=== PATIENT | male | born 1955 | race Caucasian/White ===

== ENCOUNTER 2023-07-03 06:51 | Day surgery (SDC) | payer MEDICARE, BC ==
[2023-07-02 10:48] LABS: BASOPHILS % (AUTO) 0.9 % (0-1); EOSINOPHILS # (AUTO) 0.2 X10'3 (0-0.9); HEMATOCRIT 44.4 % (42.0-52.0); HEMOGLOBIN 15.6 g/dl (14.0-17.9); LYMPHOCYTES % (AUTO) 18.5 % (21-51); MEAN CORPUSCULAR HEMOGLOBIN 30.8 PG (27.0-31.0); MEAN CORPUSCULAR HGB CONC 35.2 g/dL (33.0-36.5); MEAN CORPUSCULAR VOLUME 87.5 FL (78-98); MEAN PLATELET VOLUME 10.1 FL (7.4-10.4); MONOCYTES # (AUTO) 0.3 X10'3 (0-0.9); MONOCYTES % (AUTO) 5.1 % (2-12); NEUTROPHILS % (AUTO) 72.5 % (42-75); PLATELET COUNT 95 X10'3 (140-440); RED BLOOD COUNT 5.07 X10'6 (4.70-6.10); RED CELL DISTRIBUTION WIDTH 14.8 % (11.5-14.5); WHITE BLOOD COUNT 5.5 X10'3 (4.5-11.0)
[2023-07-02 11:01] LABS: ALBUMIN 4.2 G/DL (3.4-5.0); ANION GAP 10 (8-16); BLOOD UREA NITROGEN 20 MG/DL (7-18); BUN/CREATININE RATIO 16.7 (10.0-20.0); CHLORIDE 103 MMOL/L (99-107); POTASSIUM 3.4 MMOL/L (3.5-5.1); SODIUM 139 MMOL/L (135-145); TOTAL CARBON DIOXIDE 26.2 MMOL/L (24-32); eGFR 61 ML/MIN
[2023-07-02 11:03] LABS: APTT 30 SECONDS (22-32); PROTHROMBIN TIME 11.1 SECONDS (9.0-12.0)
[2023-07-02 11:57] LABS: GLUCOSE 137 MG/DL (70-104)
[2023-07-03] VITALS (15 sets, daily range): BP systolic 111–170; BP diastolic 59–89; PULSE 53–66; RESP 10–17; TEMP 98.3; O2SAT 95–99
[~2023-07-03] VITALS: Ht 172.7 cm; Wt 100.9 kg
[~2023-07-03 06:51] MED LIST: CARV6.252 PO; HYDR25TA5 PO; LOSA100T58 PO; PIOG15TA8 PO; [UNRECOGNIZED DRUG - OTHER] PO
[2023-07-03] MEDS ORDERED: sodium bicarbonate 1meq/ml syr 150 ML in dextrose 5%-water 1,000 ML IV SCH (07:20)
[2023-07-03] MEDS ORDERED: ACET-1008 PO (07:21)
[2023-07-03] MEDS ORDERED: MELO-100 PO (07:21)
[2023-07-03] MEDS ORDERED: CARV6.2553 PO (07:21)
[2023-07-03] MEDS ORDERED: LOSA100T58 PO (07:21)
[2023-07-03] MEDS ORDERED: SILD100T70 PO (07:21)
[2023-07-03] MEDS ORDERED: ROSU20TA73 PO (07:21)
[2023-07-03] MEDS: diphenhydrAMINE 25mg capsule PO PRN (07:26)
[2023-07-03] MEDS: LORazepam 0.5 MG tablet PO PRN (07:26)
[2023-07-03] MEDS: normal saline 1,000 ML IV SCH (07:27)
[2023-07-03] MEDS ORDERED: LIDOcaine 1% (10mg/ml) 2ml vial ONE (08:25)
[2023-07-03] MEDS ORDERED: verapamil 2.5 mg/ml inj IV ONE ×2 (08:25→08:45)
[2023-07-03] MEDS ORDERED: fentaNYL/PF 50MCG/1 ML 2ML syringe ONE (08:26)
[2023-07-03] MEDS ORDERED: heparin 1,000unit/ml 10ml vial 10 ML ONE (08:26)
[2023-07-03] MEDS ORDERED: iohexol 350MG/ML 100ml bottle IV ONE (08:26)
[2023-07-03] MEDS ORDERED: midazolam 1 mg/ML 2ml injection ONE (08:26)
[2023-07-03] MEDS ORDERED: iohexol 350 MG/ML 50ML vial IV ONE (08:26)
[2023-07-03] MEDS ORDERED: nitroGLYCERIN 500mcg/5mL D5W 5 ML IV ONE (08:44)
[2023-07-03] MEDS ORDERED: LIDOcaine 1% 30ml preserv. free vial ONE (09:15)
[2023-07-03 10:29] LABS: ISTAT HGB ART 12.6 g/dl (14.0-17.9); ISTAT Hct ART 37 %PCV (42-52); ISTAT O2 SATURATION ARTERIAL 95 % (95-98); ISTAT SOURCE ART
[2023-07-03 10:44] LABS: ISTAT HGB MIX 12.6 g/dl (14.0-17.9); ISTAT Hct MIX 37 %PCV (42-52); ISTAT O2 SATURATION MIX VENOUS 58 % (60-80); ISTAT SOURCE VEN
== END 2023-07-03 15:45 | disposition home or self-care (01) ==
LOC: SSTAY O 06:51
PROVIDERS: ATTEND Internal Medicine Cardiovascular Disease
DX: I35.0 Nonrheumatic aortic (valve) stenosis (principal); I25.10 Atherosclerotic heart disease of native coronary artery without angina pectoris; I10 Essential (primary) hypertension; E11.9 Type 2 diabetes mellitus without complications; E78.5 Hyperlipidemia, unspecified; E66.3 Overweight; Z79.899 Other long term (current) drug therapy; Z98.41 Cataract extraction status, right eye; Z98.42 Cataract extraction status, left eye; Z98.890 Other specified postprocedural states; Z68.34 Body mass index [BMI] 34.0-34.9, adult; Z82.49 Family history of ischemic heart disease and other diseases of the circulatory system; Z83.3 Family history of diabetes mellitus
CPT/HCPCS: 76937; 80048; 82803; 82948; 85014; 85025; 85610; 85730; 93005; 93460; 93567; 99152; 99153; A6258; J1644; J2250; J3010; J3490; J7030; Q0163; Q9967; A6402; A6449; C1725; C1751; C1894

== ENCOUNTER 2023-07-30 09:16 | Outpatient (CLI) | payer MEDICARE, BC ==
[~2023-07-30 09:16] MED LIST changes: +ACET-1008 PO; -CARV6.252 PO; +CARV6.2553 PO; +MELO-100 PO; +ROSU20TA73 PO; +SILD100T70 PO; -[UNRECOGNIZED DRUG - OTHER] PO
[2023-07-30 09:47] LABS: BASOPHILS # (AUTO) 0.1 X10'3 (0-0.2); BASOPHILS % (AUTO) 1.4 % (0-1); EOSINOPHILS # (AUTO) 0.2 X10'3 (0-0.9); EOSINOPHILS % (AUTO) 3.7 % (0-6); HEMATOCRIT 42.2 % (42.0-52.0); HEMOGLOBIN 14.7 g/dl (14.0-17.9); LYMPHOCYTES # (AUTO) 1.2 X10'3 (1.1-4.8); LYMPHOCYTES % (AUTO) 22.3 % (21-51); MEAN CORPUSCULAR HEMOGLOBIN 30.5 PG (27.0-31.0); MEAN CORPUSCULAR HGB CONC 34.8 g/dL (33.0-36.5); MEAN CORPUSCULAR VOLUME 87.9 FL (78-98); MEAN PLATELET VOLUME 9.5 FL (7.4-10.4); MONOCYTES # (AUTO) 0.3 X10'3 (0-0.9); MONOCYTES % (AUTO) 5.9 % (2-12); NEUTROPHILS # (AUTO) 3.5 X10'3 (1.8-7.7); NEUTROPHILS % (AUTO) 66.7 % (42-75); PLATELET COUNT 99 X10'3 (140-440); RED BLOOD COUNT 4.81 X10'6 (4.70-6.10); RED CELL DISTRIBUTION WIDTH 13.9 % (11.5-14.5); WHITE BLOOD COUNT 5.3 X10'3 (4.5-11.0)
[2023-07-30 09:54] LABS: APTT 27 SECONDS (22-32); INR 1.1 INR; PROTHROMBIN TIME 11.4 SECONDS (9.0-12.0)
[2023-07-30 10:04] LABS: ALBUMIN 4.1 G/DL (3.4-5.0); BLOOD UREA NITROGEN 18 MG/DL (7-18); BUN/CREATININE RATIO 15.9 (10.0-20.0); CALCIUM 9.2 MG/DL (8.5-10.1); CREATININE 1.13 MG/DL (0.60-1.10); GLUCOSE 139 MG/DL (70-104); TOTAL CARBON DIOXIDE 28.6 MMOL/L (24-32); eGFR 65 ML/MIN
[2023-07-30 10:08] LABS: ALANINE AMINOTRANSFERASE 42 U/L (12-78); ALBUMIN/GLOBULIN RATIO 1.2 (1.1-1.5); ALKALINE PHOSPHATASE 113 IU/L (46-116); ANION GAP 8 (8-16); ASPARTATE AMINO TRANSFERASE 29 U/L (10-37); BILIRUBIN,TOTAL 0.8 MG/DL (0.1-1.0); CHLORIDE 105 MMOL/L (99-107); POTASSIUM 3.6 MMOL/L (3.5-5.1); PRO BRAIN NATRIURETIC PEPTIDE 92 PG/ML (0-125); SODIUM 142 MMOL/L (135-145); TOTAL PROTEIN 7.5 G/DL (6.4-8.2)
[2023-07-30] MEDS ORDERED: IODIXANOL 320 MG/ML INFUS..BTL 100ML IV ONE (10:21)
== END 2023-07-30 23:59 | disposition home or self-care (01) ==
LOC: RAD 09:16
PROVIDERS: ATTEND Internal Medicine Cardiovascular Disease
DX: N28.1 Cyst of kidney, acquired (principal); I35.0 Nonrheumatic aortic (valve) stenosis; R06.02 Shortness of breath; I65.29 Occlusion and stenosis of unspecified carotid artery; I70.0 Atherosclerosis of aorta
CPT/HCPCS: 71046; 71275; 74174; 75572; 80053; 83880; 85025; 85610; 85730; 93880; J3490; Q9967

== ENCOUNTER 2023-09-11 05:37 | Inpatient (IN) | payer MEDICARE, BC ==
[2023-09-09 14:57] LABS: BILIRUBIN,URINE NEGATIVE (Neg); CLARITY,URINE CLEAR (Clear); COLOR,URINE YELLOW (Yellow); GLUCOSE, URINE NEGATIVE (Neg); KETONES,URINE NEGATIVE (Neg); LEUKOCYTE ESTERASE ,URINE NEGATIVE (Neg); NITRITES, URINE NEGATIVE (Neg); OCCULT BLOOD,URINE TRACE-INTACT (Neg); PH,URINE 5.5 (4.8-8.0); PROTEIN,URINE NEGATIVE (Neg); UROBILINOGEN,URINE 0.2 E.U/dL (0.2-1.0)
[2023-09-09 14:58] LABS: BASOPHILS % (AUTO) 0.5 % (0-1); EOSINOPHILS # (AUTO) 0.1 X10'3 (0-0.9); EOSINOPHILS % (AUTO) 1.1 % (0-6); LYMPHOCYTES % (AUTO) 13.6 % (21-51); MEAN CORPUSCULAR HEMOGLOBIN 30.1 PG (27.0-31.0); MEAN CORPUSCULAR HGB CONC 34.6 g/dL (33.0-36.5); MEAN PLATELET VOLUME 9.4 FL (7.4-10.4); MONOCYTES # (AUTO) 0.4 X10'3 (0-0.9); MONOCYTES % (AUTO) 4.7 % (2-12); NEUTROPHILS % (AUTO) 80.1 % (42-75); PRE OP HEMATOCRIT 44.2 % (42.0-52.0); PRE OP HEMOGLOBIN 15.3 g/dL (14.0-17.9); PRE OP PLATELET COUNT 114 X10'3 (140-440); PRE OP WHITE BLOOD COUNT 7.5 10'3 (4.8-10.8); RED BLOOD COUNT 5.08 X10'6 (4.70-6.10); RED CELL DISTRIBUTION WIDTH 13.7 % (11.5-14.5)
[2023-09-09 14:58] LABS: UA COLLECTION TYPE CLN CATCH MIDSTREAM
[2023-09-09 15:06] LABS: SQUAMOUS EPITHELIAL CELL,UR NONE SEEN /LPF (FEW)
[2023-09-09 15:07] LABS: BACTERIA,URINE FEW /HPF (Neg); RBC,URINE 0-2 /HPF (0-2); WBC,URINE 0-4 /HPF (0-4)
[2023-09-09 15:16] LABS: PRE OP INR 1.1 INR; PRE OP PROTIME 11.3 SECONDS (9.0-12.0)
[2023-09-09 15:19] LABS: ABG BASE EXCESS -0.9 mmol/L (-2.0-2.0); ABG HCO3 22.3 mmol/L (22.0-26.0); ABG OXYGEN SATURATION 97.4 % (94-97); ABG PCO2 (T) 33.1 mmHg (35.0-48.0); ABG PH (T) 7.446 (7.340-7.440); ABG PO2 (T) 88.3 mmHg (75.0-100.0); ALLEN'S TEST POSITIVE; FCOHb 0.2 % (0.0-3.9); FHHb 2.6 % (0.0-5.0); FMetHb 0.3 % (0.0-1.5); FO2Hb 96.9 % (94-97); MODE RA; TOTAL HEMOGLOBIN 16.1 G/dl (14.0-17.9)
[2023-09-09 15:21] LABS: ALBUMIN 4.4 G/DL (3.4-5.0); ALBUMIN/GLOBULIN RATIO 1.1 (1.1-1.5); ALKALINE PHOSPHATASE 110 IU/L (46-116); BLOOD UREA NITROGEN 26 MG/DL (7-18); BUN/CREATININE RATIO 17.3 (10.0-20.0); CALCIUM 9.9 MG/DL (8.5-10.1); CHLORIDE 104 MMOL/L (99-107); PRE OP ALT 46 U/L (30-65); PRE OP ANION GAP 11 (8-16); PRE OP AST 24 U/L (10-37); PRE OP BILIRUB, TOTAL 0.9 MG/DL (0.0-1.0); PRE OP GLUCOSE 121 MG/DL (70-104); PRE OP SODIUM 141 MMOL/L (135-145); TOTAL CARBON DIOXIDE 25.7 MMOL/L (24-32); TOTAL PROTEIN 8.3 G/DL (6.4-8.2); eGFR 47 ML/MIN
[2023-09-09 16:07] LABS: HEMOGLOBIN A1C 5.5 % (4.5-6.2)
[~2023-09-11] VITALS: Ht 172.7 cm; Wt 103.1 kg
[2023-09-11] VITALS (21 sets, daily range): BP systolic 103–176; BP diastolic 45–91; PULSE 68–90; RESP 12–33; TEMP 98.1; O2SAT 98–100
[2023-09-11] MEDS: cefazolin 2gm/D5W 100mL 100 ML IV ONE (05:30)
[2023-09-11] MEDS: DOCUMENT DATE & TIME OF BETA-BLOCKER PO ONE (05:30)
[2023-09-11] MEDS: Insulin Reg/NS 100units/100mL 100 ML IV SCH ×2 (05:30→15:45)
[~2023-09-11 05:37] MED LIST changes: -ACET-1008 PO; +ASPI-612 PO; +HYDR12.55 PO; -HYDR25TA5 PO; +MIDAZolam 1 MG/ML 5ML VIAL IV ONE; -ROSU20TA73 PO; -SILD100T70 PO; +dextrose 50%-water 50ml dispensing syringe IV PRN; +insulin glargine (Lantus) pen - multi-dose SQ PRN
[2023-09-11] MEDS: metoprolol tartrate 12.5mg (1/2 tablet) PO ONE (06:34)
[2023-09-11] MEDS: mupirocin 2% nasal ointment 1gm UD NS ONE (06:35)
[2023-09-11] MEDS: ringers solution, lacted 1,000 ML IV SCH (06:35)
[2023-09-11] MEDS: famotidine 20mg tablet PO ONE (06:35)
[2023-09-11 06:36] LABS: ISTAT CREATININE 1.2 mg/dL (0.8-1.3); ISTAT HGB 13.3 g/dl (14.0-17.9); ISTAT IONIZED CALCIUM 1.19 mmol/L (1.03-1.32); ISTAT K 3.2 mmol/L (3.5-5.1); POC BUN/CREATININE RATIO 13.3 (5.4-32.0)
[2023-09-11] MEDS: midazolam 1 mg/ML 2ml injection IV ONE (08:03)
[2023-09-11] MEDS ORDERED: MIDAZolam 1mg/ml 10ml vial ONE (08:23)
[2023-09-11] MEDS ORDERED: SUfentanil 50mcg/ml 1ml amp IV ONE (08:23)
[2023-09-11] MEDS ORDERED: sevoflurane 250ml liquid IH ONE (08:58)
[2023-09-11 09:58] LABS: ABG BASE EXCESS 0.8 mmol/L (-2.0-2.0); ABG HCO3 24.3 mmol/L (22.0-26.0); ABG OXYGEN SATURATION 98.7 % (94-97); ABG PCO2 35.2 mmHg (35.0-48.0); ABG PH 7.457 (7.340-7.440); CL (ABG) 103 mmol/L (99-107); FCOHb 0.2 % (0.0-3.9); FHHb 1.3 % (0.0-5.0); FMetHb 0.3 % (0.0-1.5); FO2Hb 98.2 % (94-97); GLUCOSE (ABG) 154 mg/dl (70-104); IONIZED CA (ABG) 1.11 mmol/L (1.10-1.30); K (ABG) 3.1 mmol/L (3.5-5.1); TOTAL HEMOGLOBIN 12.9 G/dl (14.0-17.9)
[2023-09-11] MEDS: BUPIVACAINE liposomal/PF 13.3 MG/ML vial IM ONE (10:21)
[2023-09-11] MEDS: ceFAZolin 1000mg inj ONE (10:22)
[2023-09-11] MEDS: BUPIVAcaine/PF 2.5mg/ml (0.25%) 10ml vial ONE (10:22)
[2023-09-11 11:10] LABS: ABG HCO3 24.3 mmol/L (22.0-26.0); ABG OXYGEN SATURATION 98.8 % (94-97); ABG PCO2 33.8 mmHg (35.0-48.0); ABG PH 7.475 (7.340-7.440); CL (ABG) 101 mmol/L (99-107); FCOHb 0.3 % (0.0-3.9); FHHb 1.2 % (0.0-5.0); FMetHb 0.3 % (0.0-1.5); FO2Hb 98.2 % (94-97); GLUCOSE (ABG) 112 mg/dl (70-104); IONIZED CA (ABG) 0.97 mmol/L (1.10-1.30); K (ABG) 3.8 mmol/L (3.5-5.1); TOTAL HEMOGLOBIN 9.8 G/dl (14.0-17.9)
[2023-09-11 11:39] LABS: ABG BASE EXCESS VENOUS 0.9 mmol/L (-2.0 - 2.0); ABG HCO3 VENOUS 26.6 mmol/L (21.0-28.0); ABG PCO2 VENOUS 47.9 mmHg (41.0-54.0); ABG PH (VENOUS) 7.363 (7.310-7.450); CL (ABG) 102 mmol/L (99-107); FCOHb VENOUS 0.3 %; FHHb VENOUS 12.9 %; FMetHb VENOUS 0.3 % (0.0 - 0.5); FO2Hb VENOUS 86.5 %; GLUCOSE (ABG) 116 mg/dl (70-104); IONIZED CA (ABG) 0.96 mmol/L (1.10-1.30); K (ABG) 3.6 mmol/L (3.5-5.1); TOTAL HEMOGLOBIN 9.8 G/dl (14.0-17.9)
[2023-09-11 12:27] LABS: ABG BASE EXCESS 0.3 mmol/L (-2.0-2.0); ABG HCO3 26.5 mmol/L (22.0-26.0); ABG OXYGEN SATURATION 98.7 % (94-97); ABG PCO2 50.8 mmHg (35.0-48.0); ABG PH 7.336 (7.340-7.440); ABG PO2 241.6 mmHg (75.0-100.0); CL (ABG) 103 mmol/L (99-107); FCOHb 0.3 % (0.0-3.9); FHHb 1.3 % (0.0-5.0); FMetHb 0.3 % (0.0-1.5); FO2Hb 98.1 % (94-97); GLUCOSE (ABG) 142 mg/dl (70-104); IONIZED CA (ABG) 0.99 mmol/L (1.10-1.30); K (ABG) 3.8 mmol/L (3.5-5.1); TOTAL HEMOGLOBIN 9.7 G/dl (14.0-17.9)
[2023-09-11 13:56] LABS: ABG BASE EXCESS 3.3 mmol/L (-2.0-2.0); ABG HCO3 27.8 mmol/L (22.0-26.0); ABG OXYGEN SATURATION 98.9 % (94-97); ABG PCO2 42.1 mmHg (35.0-48.0); ABG PH 7.438 (7.340-7.440); CL (ABG) 102 mmol/L (99-107); FCOHb 0.3 % (0.0-3.9); FHHb 1.1 % (0.0-5.0); FMetHb 0.3 % (0.0-1.5); FO2Hb 98.3 % (94-97); GLUCOSE (ABG) 137 mg/dl (70-104); IONIZED CA (ABG) 1.25 mmol/L (1.10-1.30); K (ABG) 3.8 mmol/L (3.5-5.1); TOTAL HEMOGLOBIN 9.4 G/dl (14.0-17.9)
[2023-09-11 14:08] LABS: ACTIVATED CLOTTING TIME 680 SEC (101-148)
[2023-09-11 14:08] LABS: ACTIVATED CLOTTING TIME 397 SEC (101-148)
[2023-09-11 14:08] LABS: ACTIVATED CLOTTING TIME 710 SEC (101-148)
[2023-09-11 14:08] LABS: ACTIVATED CLOTTING TIME 895 SEC (101-148)
[2023-09-11 14:32] LABS: ABG BASE EXCESS 1.2 mmol/L (-2.0-2.0); ABG HCO3 26.2 mmol/L (22.0-26.0); ABG PH 7.402 (7.340-7.440); CL (ABG) 103 mmol/L (99-107); FCOHb 0.4 % (0.0-3.9); FHHb 13.9 % (0.0-5.0); FMetHb 0.3 % (0.0-1.5); FO2Hb 85.4 % (94-97); GLUCOSE (ABG) 130 mg/dl (70-104); IONIZED CA (ABG) 1.13 mmol/L (1.10-1.30); K (ABG) 3.3 mmol/L (3.5-5.1); TOTAL HEMOGLOBIN 9.4 G/dl (14.0-17.9)
[2023-09-11] MEDS ORDERED: rocuronium 10mg/ml inj IV ONE ×4 (14:37)
[2023-09-11] MEDS ORDERED: fentaNYL/PF 50MCG/1 ML 2ML syringe ONE (14:38)
[2023-09-11] MEDS ORDERED: propofol inj 20 ML IV ONE (14:38)
[2023-09-11] MEDS ORDERED: Neutra Phos packet PO PRN (15:45)
[2023-09-11] MEDS ORDERED: bisacodyl 10mg suppository rectal RC PRN (15:45)
[2023-09-11] MEDS ORDERED: potassium CL 10mEq/100ml bag 100 ML IV PRN (15:45)
[2023-09-11] MEDS ORDERED: dextrose 50%-water 50ml dispensing syringe IV PRN (15:45)
[2023-09-11] MEDS ORDERED: mineral oil 133ml enema RC PRN (15:45)
[2023-09-11] MEDS ORDERED: magnesium hydroxide 30ml (MOM) UD suspension PO PRN (15:45)
[2023-09-11] MEDS ORDERED: nitroGLYCERIN-Tridil 50MG/D5W 250 ML IV PRN (15:45)
[2023-09-11] MEDS ORDERED: normal saline 250ml IV soln 250 ML IV PRN (15:45)
[2023-09-11] MEDS ORDERED: insulin glargine (Lantus) pen - multi-dose SQ PRN (15:45)
[2023-09-11] MEDS ORDERED: potassium Cl 40MEQ/1/2NS 520ml 520 ML IV PRN (15:45)
[2023-09-11 16:09] LABS: ABG BASE EXCESS 1.4 mmol/L (-2.0-2.0); ABG HCO3 24.4 mmol/L (22.0-26.0); ABG OXYGEN SATURATION 98.4 % (94-97); ABG PCO2 (T) 31.6 mmHg (35.0-48.0); ABG PH (T) 7.502 (7.340-7.440); ABG PO2 (T) 134.5 mmHg (75.0-100.0); FCOHb 0.1 % (0.0-3.9); FHHb 1.6 % (0.0-5.0); FMetHb 0.3 % (0.0-1.5); MODE VENT - SIMV; PEEP 5 cm H2O; RESPIRATORY RATE 12 b/min; TIDAL VOLUME 600 mL; TOTAL HEMOGLOBIN 11.5 G/dl (14.0-17.9)
[2023-09-11 16:17] LABS: BASOPHILS % (AUTO) 0.2 % (0-1); EOSINOPHILS % (AUTO) 0.2 % (0-6); HEMATOCRIT 30.8 % (42.0-52.0); HEMOGLOBIN 10.9 g/dl (14.0-17.9); LYMPHOCYTES # (AUTO) 0.6 X10'3 (1.1-4.8); LYMPHOCYTES % (AUTO) 8.4 % (21-51); MEAN CORPUSCULAR HEMOGLOBIN 30.3 PG (27.0-31.0); MEAN CORPUSCULAR HGB CONC 35.3 g/dL (33.0-36.5); MEAN PLATELET VOLUME 9.2 FL (7.4-10.4); MONOCYTES # (AUTO) 0.4 X10'3 (0-0.9); MONOCYTES % (AUTO) 4.9 % (2-12); NEUTROPHILS # (AUTO) 6.3 X10'3 (1.8-7.7); NEUTROPHILS % (AUTO) 86.3 % (42-75); RED BLOOD COUNT 3.58 X10'6 (4.70-6.10); RED CELL DISTRIBUTION WIDTH 13.5 % (11.5-14.5); WHITE BLOOD COUNT 7.3 X10'3 (4.5-11.0)
[2023-09-11 16:23] LABS: ALANINE AMINOTRANSFERASE 29 U/L (12-78); ALBUMIN 3.5 G/DL (3.4-5.0); ALBUMIN/GLOBULIN RATIO 1.8 (1.1-1.5); ALKALINE PHOSPHATASE 51 IU/L (46-116); ANION GAP 9 (8-16); ASPARTATE AMINO TRANSFERASE 52 U/L (10-37); BILIRUBIN,TOTAL 1.5 MG/DL (0.1-1.0); BLOOD UREA NITROGEN 13 MG/DL (7-18); BUN/CREATININE RATIO 11.3 (10.0-20.0); CALCIUM 9.2 MG/DL (8.5-10.1); CHLORIDE 108 MMOL/L (99-107); CREATININE 1.15 MG/DL (0.60-1.10); GLUCOSE 115 MG/DL (70-104); MAGNESIUM 3.3 MG/DL (1.5-2.4); PHOSPHORUS 1.4 MG/DL (2.3-4.5); SODIUM 144 MMOL/L (135-145); TOTAL CARBON DIOXIDE 26.7 MMOL/L (24-32); TOTAL PROTEIN 5.4 G/DL (6.4-8.2); eCRCL 62 ML/MIN; eGFR 64 ML/MIN
[2023-09-11] MEDS: sodium chloride 0.45% 1,000 ML IV SCH (16:26)
[2023-09-11] MEDS: ceFAZolin/D5W- 1GM premix 50 ML IV SCH (16:27)
[2023-09-11 16:29] LABS: POTASSIUM 3.2 MMOL/L (3.5-5.1)
[2023-09-11 16:56] LABS: APTT 26 SECONDS (22-32); INR 1.3 INR; PROTHROMBIN TIME 13.3 SECONDS (9.0-12.0)
[2023-09-11 17:02] LABS: FIBRINOGEN 175 MG/DL (177-424)
[2023-09-11] MEDS: acetaminophen 1,000mg/100ml IV 100 ML IV SCH (17:12)
[2023-09-11 17:23] LABS: PLATELET COUNT 44 X10'3 (140-440)
[2023-09-11] MEDS: potassium Cl 20mEq/100mL bag 100 ML IV PRN (17:50)
[2023-09-11] MEDS: niCARDipine-NS 40mg/200ml IVPB 200 ML IV PRN (18:17)
[2023-09-11] MEDS: DOBUTamine-DoBUTrex 500mg/D5W 250 ML IV PRN (18:18)
[2023-09-11] MEDS: sodium phosphate inj. 30 MMOL in dextrose 5%-water 250 ML IV PRN (18:20)
[2023-09-11] MEDS: HYDROmorphone inj. 0.5 MG/0.5 ML DISP.SYRIN IV PRN (19:05)
[2023-09-11] MEDS: albumin (Human) 5% 250ml 250 ML IV PRN (19:24)
[2023-09-11] MEDS ORDERED: mupirocin 2% ointment 22GM NS SCH (20:00)
[2023-09-11] MEDS: HYDROmorphone 1 mg/ml syringe IV PRN (20:10)
[2023-09-11] MEDS: mupirocin 2% nasal ointment 1gm UD NS SCH (20:41)
[2023-09-11] MEDS: atorvastatin 10mg tablet PO SCH (20:42)
[2023-09-11] MEDS: traMADol 50MG tablet PO PRN (20:42)
[2023-09-11] MEDS: gabapentin 300mg capsule PO SCH (20:42)
[2023-09-11] MEDS: sennosides/docusate sodium tablet PO SCH (20:42)
[2023-09-11 21:53] LABS: BASOPHILS % (AUTO) 0.1 % (0-1); EOSINOPHILS % (AUTO) 0 % (0-6); HEMATOCRIT 28.2 % (42.0-52.0); HEMOGLOBIN 9.9 g/dl (14.0-17.9); LYMPHOCYTES # (AUTO) 0.3 X10'3 (1.1-4.8); LYMPHOCYTES % (AUTO) 3.8 % (21-51); MEAN CORPUSCULAR HEMOGLOBIN 30.5 PG (27.0-31.0); MEAN CORPUSCULAR HGB CONC 35.3 g/dL (33.0-36.5); MEAN CORPUSCULAR VOLUME 86.4 FL (78-98); MEAN PLATELET VOLUME 8.8 FL (7.4-10.4); MONOCYTES # (AUTO) 0.2 X10'3 (0-0.9); MONOCYTES % (AUTO) 2.6 % (2-12); NEUTROPHILS % (AUTO) 93.5 % (42-75); PLATELET COUNT 53 X10'3 (140-440); RED BLOOD COUNT 3.26 X10'6 (4.70-6.10); RED CELL DISTRIBUTION WIDTH 13.6 % (11.5-14.5); WHITE BLOOD COUNT 8.6 X10'3 (4.5-11.0)
[2023-09-11 22:06] LABS: ALBUMIN 3.6 G/DL (3.4-5.0); ANION GAP 9 (8-16); BLOOD UREA NITROGEN 15 MG/DL (7-18); BUN/CREATININE RATIO 10.6 (10.0-20.0); CALCIUM 8.4 MG/DL (8.5-10.1); CHLORIDE 109 MMOL/L (99-107); CREATININE 1.42 MG/DL (0.60-1.10); GLUCOSE 155 MG/DL (70-104); MAGNESIUM 2.4 MG/DL (1.5-2.4); PHOSPHORUS 2.4 MG/DL (2.3-4.5); POTASSIUM 3.8 MMOL/L (3.5-5.1); SODIUM 143 MMOL/L (135-145); eCRCL 50 ML/MIN; eGFR 50 ML/MIN
[2023-09-11] MEDS: magnesium 2GM in 50ml NS 50 ML IV PRN (22:26)
[2023-09-11] MEDS: hydrocortisone sod succ/PF 100mg/2ml inj. IV ONE (22:26)
[2023-09-11 22:35] LABS: ABG BASE EXCESS -0.2 mmol/L (-2.0-2.0); ABG HCO3 22.1 mmol/L (22.0-26.0); ABG OXYGEN SATURATION 98.4 % (94-97); ABG PCO2 (T) 28.8 mmHg (35.0-48.0); ABG PH (T) 7.505 (7.340-7.440); ABG PO2 (T) 128.2 mmHg (75.0-100.0); FCOHb 0.3 % (0.0-3.9); FHHb 1.6 % (0.0-5.0); FMetHb 0.3 % (0.0-1.5); FO2Hb 97.8 % (94-97); MODE SIMV; PATIENT TEMPERATURE 37.2; PEEP 5 cm H2O; RESPIRATORY RATE 8 b/min; TIDAL VOLUME 500 mL; TOTAL HEMOGLOBIN 10.4 G/dl (14.0-17.9)
[2023-09-11] MEDS: ipratropium/albuterol 3ml nebule NEB SCH (22:42)
[2023-09-11] MEDS: dexmedetomidin/NS 400mcg/100ml 100 ML IV PRN (23:39)
[2023-09-12] VITALS (38 sets, daily range): BP systolic 97–161; BP diastolic 44–62; PULSE 70–94; RESP 11–39; O2SAT 91–100
[2023-09-12 03:24] LABS: BASOPHILS % (AUTO) 0.1 % (0-1); EOSINOPHILS % (AUTO) 0 % (0-6); LYMPHOCYTES # (AUTO) 0.3 X10'3 (1.1-4.8); MONOCYTES # (AUTO) 0.4 X10'3 (0-0.9); RED BLOOD COUNT 3.19 X10'6 (4.70-6.10)
[2023-09-12 03:25] LABS: HEMATOCRIT 27.8 % (42.0-52.0); HEMOGLOBIN 9.7 g/dl (14.0-17.9); LYMPHOCYTES % (AUTO) 3.3 % (21-51); MEAN CORPUSCULAR HEMOGLOBIN 30.3 PG (27.0-31.0); MEAN CORPUSCULAR HGB CONC 34.8 g/dL (33.0-36.5); MEAN CORPUSCULAR VOLUME 87.2 FL (78-98); MEAN PLATELET VOLUME 9.6 FL (7.4-10.4); MONOCYTES % (AUTO) 4.7 % (2-12); NEUTROPHILS # (AUTO) 7.2 X10'3 (1.8-7.7); NEUTROPHILS % (AUTO) 91.9 % (42-75); RED CELL DISTRIBUTION WIDTH 13.9 % (11.5-14.5); WHITE BLOOD COUNT 7.9 X10'3 (4.5-11.0)
[2023-09-12 03:30] LABS: PLATELET COUNT 43 X10'3 (140-440)
[2023-09-12 03:36] LABS: APTT 25 SECONDS (22-32); INR 1.1 INR; PROTHROMBIN TIME 11.5 SECONDS (9.0-12.0)
[2023-09-12 03:42] LABS: ALANINE AMINOTRANSFERASE 26 U/L (12-78); ALBUMIN 3.4 G/DL (3.4-5.0); ALBUMIN/GLOBULIN RATIO 1.7 (1.1-1.5); ALKALINE PHOSPHATASE 43 IU/L (46-116); ANION GAP 10 (8-16); ASPARTATE AMINO TRANSFERASE 49 U/L (10-37); BILIRUBIN,TOTAL 1.1 MG/DL (0.1-1.0); BLOOD UREA NITROGEN 14 MG/DL (7-18); BUN/CREATININE RATIO 11.9 (10.0-20.0); CALCIUM 8.2 MG/DL (8.5-10.1); CHLORIDE 111 MMOL/L (99-107); CREATININE 1.18 MG/DL (0.60-1.10); GLUCOSE 140 MG/DL (70-104); MAGNESIUM 2.8 MG/DL (1.5-2.4); PHOSPHORUS 3.2 MG/DL (2.3-4.5); POTASSIUM 4.1 MMOL/L (3.5-5.1); SODIUM 144 MMOL/L (135-145); TOTAL CARBON DIOXIDE 22.8 MMOL/L (24-32); TOTAL PROTEIN 5.4 G/DL (6.4-8.2); eCRCL 60 ML/MIN; eGFR 62 ML/MIN
[2023-09-12] MEDS: potassium Cl 40MEQ/270ML bag 250 ML IV PRN (04:50)
[2023-09-12] MEDS ORDERED: metoprolol tartrate 12.5mg (1/2 tablet) PO SCH (08:00)
[2023-09-12] MEDS ORDERED: HYDROmorphone inj. 0.5 MG/0.5 ML DISP.SYRIN IV PRN (08:45)
[2023-09-12] MEDS: aspirin 81mg tab.chew PO SCH (09:34)
[2023-09-12] MEDS: furosemide 20 MG/2 ML vial IV ONE (09:34)
[2023-09-12] MEDS: metoprolol tartrate 12.5mg (1/2 tablet) PO SCH (09:34)
[2023-09-12] MEDS: ondansetron/PF 4mg/2ml inj IV PRN (09:42)
[2023-09-12] MEDS: metoclopramide 5 mg/ml inj IV PRN (10:28)
[2023-09-12] MEDS: albumin (human) 25% 100 ML IV solution IV ONE (20:15)
[2023-09-12] MEDS: furosemide 20 MG/2 ML vial IV SCH (21:11)
[2023-09-12] MEDS: acetaminophen 325mg tablet PO PRN (23:18)
[2023-09-13] VITALS (29 sets, daily range): BP systolic 100–141; BP diastolic 42–78; PULSE 80–105; RESP 11–27; O2SAT 91–99
[2023-09-13 03:26] LABS: BASOPHILS % (AUTO) 0 % (0-1); EOSINOPHILS % (AUTO) 0 % (0-6); HEMATOCRIT 23.9 % (42.0-52.0); HEMOGLOBIN 8.1 g/dl (14.0-17.9); LYMPHOCYTES # (AUTO) 0.5 X10'3 (1.1-4.8); LYMPHOCYTES % (AUTO) 6.8 % (21-51); MEAN CORPUSCULAR HEMOGLOBIN 29.9 PG (27.0-31.0); MEAN CORPUSCULAR HGB CONC 33.8 g/dL (33.0-36.5); MEAN CORPUSCULAR VOLUME 88.5 FL (78-98); MEAN PLATELET VOLUME 10.1 FL (7.4-10.4); MONOCYTES # (AUTO) 0.4 X10'3 (0-0.9); MONOCYTES % (AUTO) 5.6 % (2-12); NEUTROPHILS # (AUTO) 6.3 X10'3 (1.8-7.7); NEUTROPHILS % (AUTO) 87.6 % (42-75); RED CELL DISTRIBUTION WIDTH 13.8 % (11.5-14.5); WHITE BLOOD COUNT 7.2 X10'3 (4.5-11.0)
[2023-09-13 03:35] LABS: PLATELET COUNT 35 X10'3 (140-440)
[2023-09-13 03:37] LABS: ALBUMIN 3.4 G/DL (3.4-5.0); ANION GAP 10 (8-16); BLOOD UREA NITROGEN 23 MG/DL (7-18); BUN/CREATININE RATIO 18.3 (10.0-20.0); CHLORIDE 108 MMOL/L (99-107); CREATININE 1.26 MG/DL (0.60-1.10); GLUCOSE 133 MG/DL (70-104); MAGNESIUM 2.2 MG/DL (1.5-2.4); PHOSPHORUS 2.7 MG/DL (2.3-4.5); SODIUM 143 MMOL/L (135-145); TOTAL CARBON DIOXIDE 25.1 MMOL/L (24-32); eCRCL 57 ML/MIN; eGFR 57 ML/MIN
[2023-09-13] MEDS: potassium Cl 20 mEq SR tablet PO PRN (06:28)
[2023-09-13] MEDS: CALCIUM GLUC 1gm/50ml NACL,iso 50 ML IV ONE ×2 (07:20→11:26)
[2023-09-13] MEDS ORDERED: DEXTROSE 15 GM of carb/4 tabs (each vial/BOTTLE has 4 tablets) PO PRN ×2 (07:45)
[2023-09-13] MEDS ORDERED: dextrose 50%-water 50ml dispensing syringe IV PRN ×2 (07:45)
[2023-09-13] MEDS ORDERED: glucagon, human recombinant 1mg kit SUBCUT PRN (07:45)
[2023-09-13] MEDS: pantoprazole 40mg Tablet.DR PO SCH (08:28)
[2023-09-13] MEDS: INSULIN LISPRO 100 UNIT/ML INSULN.PEN MULTI-DOSE SQ SCH ×2 (10:19→14:45)
[2023-09-13] MEDS: insulin glargine (Lantus) pen - multi-dose SQ SCH (10:20)
[2023-09-14] VITALS (27 sets, daily range): BP systolic 92–135; BP diastolic 43–71; PULSE 81–98; RESP 14–28; TEMP 98–98.7; O2SAT 90–99
[2023-09-14 02:50] LABS: BASOPHILS % (AUTO) 0.1 % (0-1); EOSINOPHILS % (AUTO) 0 % (0-6); HEMATOCRIT 23.9 % (42.0-52.0); HEMOGLOBIN 8.2 g/dl (14.0-17.9); LYMPHOCYTES # (AUTO) 0.7 X10'3 (1.1-4.8); LYMPHOCYTES % (AUTO) 9.1 % (21-51); MEAN CORPUSCULAR HEMOGLOBIN 30.4 PG (27.0-31.0); MEAN CORPUSCULAR HGB CONC 34.4 g/dL (33.0-36.5); MEAN CORPUSCULAR VOLUME 88.4 FL (78-98); MEAN PLATELET VOLUME 10.1 FL (7.4-10.4); MONOCYTES # (AUTO) 0.5 X10'3 (0-0.9); MONOCYTES % (AUTO) 6.3 % (2-12); NEUTROPHILS # (AUTO) 6.2 X10'3 (1.8-7.7); NEUTROPHILS % (AUTO) 84.5 % (42-75); RED BLOOD COUNT 2.71 X10'6 (4.70-6.10); RED CELL DISTRIBUTION WIDTH 13.9 % (11.5-14.5); WHITE BLOOD COUNT 7.4 X10'3 (4.5-11.0)
[2023-09-14 03:09] LABS: ALBUMIN 3.2 G/DL (3.4-5.0); ANION GAP 8 (8-16); BLOOD UREA NITROGEN 29 MG/DL (7-18); BUN/CREATININE RATIO 25.4 (10.0-20.0); CALCIUM 8.2 MG/DL (8.5-10.1); CHLORIDE 106 MMOL/L (99-107); CREATININE 1.14 MG/DL (0.60-1.10); GLUCOSE 149 MG/DL (70-104); MAGNESIUM 1.6 MG/DL (1.5-2.4); PHOSPHORUS 1.7 MG/DL (2.3-4.5); SODIUM 140 MMOL/L (135-145); TOTAL CARBON DIOXIDE 25.8 MMOL/L (24-32); eCRCL 63 ML/MIN; eGFR 64 ML/MIN
[2023-09-14 03:54] LABS: PLATELET COUNT 46 X10'3 (140-440)
[2023-09-14] MEDS: acetaminophen 325mg tablet PO PRN (04:39)
[2023-09-14] MEDS: magnesium 4gm in 100ml NS 100 ML IV PRN (04:39)
[2023-09-14] MEDS: sodium phosphate inj. 15 MMOL in dextrose 5%-water 250 ML IV PRN (05:18)
[2023-09-14] MEDS: potassium Cl 20 mEq SR tablet PO SCH (12:11)
[2023-09-14] MEDS: iron polysaccharide complex 150mg capsule PO SCH (12:11)
[2023-09-14] MEDS: metoprolol tartrate 25mg tablet PO SCH (16:48)
[2023-09-14] MEDS: guaiFENesin ER 600mg tablet PO SCH (19:16)
[2023-09-15] VITALS (28 sets, daily range): BP systolic 102–149; BP diastolic 58–75; PULSE 47–98; RESP 15–18; TEMP 96.9–98.7; O2SAT 95–100
[2023-09-15 06:30] LABS: ALBUMIN 3.3 G/DL (3.4-5.0); ANION GAP 10 (8-16); BLOOD UREA NITROGEN 21 MG/DL (7-18); BUN/CREATININE RATIO 20.6 (10.0-20.0); CALCIUM 8.3 MG/DL (8.5-10.1); CHLORIDE 102 MMOL/L (99-107); CREATININE 1.02 MG/DL (0.60-1.10); GLUCOSE 142 MG/DL (70-104); PHOSPHORUS 2.4 MG/DL (2.3-4.5); POTASSIUM 4.1 MMOL/L (3.5-5.1); SODIUM 138 MMOL/L (135-145); TOTAL CARBON DIOXIDE 26.1 MMOL/L (24-32); eCRCL 70 ML/MIN; eGFR 73 ML/MIN
[2023-09-15 06:32] LABS: BASOPHILS % (AUTO) 0.2 % (0-1); EOSINOPHILS % (AUTO) 0.2 % (0-6); LYMPHOCYTES # (AUTO) 0.5 X10'3 (1.1-4.8); MEAN PLATELET VOLUME 10.1 FL (7.4-10.4); NEUTROPHILS # (AUTO) 6.2 X10'3 (1.8-7.7)
[2023-09-15 06:33] LABS: HEMATOCRIT 25.1 % (42.0-52.0); HEMOGLOBIN 8.7 g/dl (14.0-17.9); LYMPHOCYTES % (AUTO) 7.4 % (21-51); MEAN CORPUSCULAR HEMOGLOBIN 30.7 PG (27.0-31.0); MEAN CORPUSCULAR HGB CONC 34.5 g/dL (33.0-36.5); MEAN CORPUSCULAR VOLUME 88.8 FL (78-98); MONOCYTES # (AUTO) 0.4 X10'3 (0-0.9); MONOCYTES % (AUTO) 5.3 % (2-12); NEUTROPHILS % (AUTO) 86.9 % (42-75); PLATELET COUNT 62 X10'3 (140-440); RED BLOOD COUNT 2.82 X10'6 (4.70-6.10); RED CELL DISTRIBUTION WIDTH 13.8 % (11.5-14.5); WHITE BLOOD COUNT 7.2 X10'3 (4.5-11.0)
[2023-09-15] MEDS: spironolactone 25 MG tablet PO SCH (09:07)
[2023-09-15 09:13] LABS: CREATININE 1.08 MG/DL (0.60-1.10); POTASSIUM 4.1 MMOL/L (3.5-5.1); eCRCL 66 ML/MIN; eGFR 69 ML/MIN
[2023-09-15] MEDS: amiodarone 150mg/dext, iso-os 100 ML IV ONE (09:21)
[2023-09-15] MEDS: amiodarone/D5 360MG/200ML BAG 200 ML IV SCH (09:56)
[2023-09-15] MEDS ORDERED: hydrocortisone 1% cream 28gm TP PRN (15:45)
[2023-09-15] MEDS: sennosides/docusate sodium tablet PO PRN (19:43)
[2023-09-16] VITALS (21 sets, daily range): BP systolic 11–129; BP diastolic 56–74; PULSE 78–92; RESP 15–19; TEMP 97.1–98.4; O2SAT 95–99
[2023-09-16 06:36] LABS: ACTIVATED CLOTTING TIME 124 SEC (101-148)
[2023-09-16 06:43] LABS: PHOSPHORUS 2.8 MG/DL (2.3-4.5)
[2023-09-16 09:05] LABS: ALBUMIN 2.8 G/DL (3.4-5.0); ANION GAP 11 (8-16); BLOOD UREA NITROGEN 19 MG/DL (7-18); BUN/CREATININE RATIO 18.4 (10.0-20.0); CHLORIDE 103 MMOL/L (99-107); CREATININE 1.03 MG/DL (0.60-1.10); GLUCOSE 108 MG/DL (70-104); POTASSIUM 4.3 MMOL/L (3.5-5.1); SODIUM 138 MMOL/L (135-145); TOTAL CARBON DIOXIDE 23.9 MMOL/L (24-32); eCRCL 69 ML/MIN; eGFR 72 ML/MIN
[2023-09-16 09:41] LABS: ABG PO2 48.5 mmHg (75.0-100.0)
[2023-09-16] MEDS: amiodarone 150mg/dext, iso-os 100 ML IV ONE (09:45)
[2023-09-16 10:45] LABS: BASOPHILS % (AUTO) 0.6 % (0-1); EOSINOPHILS # (AUTO) 0.1 X10'3 (0-0.9); EOSINOPHILS % (AUTO) 2.5 % (0-6); HEMATOCRIT 22.3 % (42.0-52.0); HEMOGLOBIN 7.9 g/dl (14.0-17.9); LYMPHOCYTES # (AUTO) 0.6 X10'3 (1.1-4.8); LYMPHOCYTES % (AUTO) 12.4 % (21-51); MEAN CORPUSCULAR HEMOGLOBIN 31.3 PG (27.0-31.0); MEAN CORPUSCULAR HGB CONC 35.3 g/dL (33.0-36.5); MEAN CORPUSCULAR VOLUME 88.7 FL (78-98); MEAN PLATELET VOLUME 9.9 FL (7.4-10.4); MONOCYTES # (AUTO) 0.3 X10'3 (0-0.9); MONOCYTES % (AUTO) 5.9 % (2-12); NEUTROPHILS # (AUTO) 3.8 X10'3 (1.8-7.7); NEUTROPHILS % (AUTO) 78.6 % (42-75); PLATELET COUNT 76 X10'3 (140-440); RED BLOOD COUNT 2.51 X10'6 (4.70-6.10); RED CELL DISTRIBUTION WIDTH 13.8 % (11.5-14.5); WHITE BLOOD COUNT 4.8 X10'3 (4.5-11.0)
[2023-09-16] MEDS: apixaban 5mg tablet PO SCH (20:09)
[2023-09-17] VITALS (16 sets, daily range): BP systolic 98–133; BP diastolic 56–92; PULSE 63–113; RESP 12–19; TEMP 97–98.2; O2SAT 96–100
[2023-09-17 06:09] LABS: BASOPHILS % (AUTO) 0.3 % (0-1); EOSINOPHILS # (AUTO) 0.1 X10'3 (0-0.9); EOSINOPHILS % (AUTO) 1.4 % (0-6); HEMOGLOBIN 7.3 g/dl (14.0-17.9); LYMPHOCYTES # (AUTO) 0.5 X10'3 (1.1-4.8); LYMPHOCYTES % (AUTO) 9.8 % (21-51); MEAN CORPUSCULAR HEMOGLOBIN 30.7 PG (27.0-31.0); MEAN CORPUSCULAR HGB CONC 34.4 g/dL (33.0-36.5); MEAN CORPUSCULAR VOLUME 89.3 FL (78-98); MONOCYTES # (AUTO) 0.3 X10'3 (0-0.9); MONOCYTES % (AUTO) 5.2 % (2-12); NEUTROPHILS # (AUTO) 4.3 X10'3 (1.8-7.7); NEUTROPHILS % (AUTO) 83.3 % (42-75); PLATELET COUNT 69 X10'3 (140-440); RED BLOOD COUNT 2.38 X10'6 (4.70-6.10); RED CELL DISTRIBUTION WIDTH 13.7 % (11.5-14.5); WHITE BLOOD COUNT 5.2 X10'3 (4.5-11.0)
[2023-09-17 06:14] LABS: HEMATOCRIT 21.3 % (42.0-52.0)
[2023-09-17 06:16] LABS: ALBUMIN 2.7 G/DL (3.4-5.0); ANION GAP 9 (8-16); BLOOD UREA NITROGEN 17 MG/DL (7-18); BUN/CREATININE RATIO 13.8 (10.0-20.0); CALCIUM 8.3 MG/DL (8.5-10.1); CHLORIDE 100 MMOL/L (99-107); CREATININE 1.23 MG/DL (0.60-1.10); GLUCOSE 125 MG/DL (70-104); MAGNESIUM 1.9 MG/DL (1.5-2.4); PHOSPHORUS 3.9 MG/DL (2.3-4.5); POTASSIUM 4.2 MMOL/L (3.5-5.1); SODIUM 134 MMOL/L (135-145); TOTAL CARBON DIOXIDE 25.2 MMOL/L (24-32); eCRCL 58 ML/MIN; eGFR 59 ML/MIN
[2023-09-17 12:07] LABS: BASOPHILS % (AUTO) 0.3 % (0-1); EOSINOPHILS # (AUTO) 0.1 X10'3 (0-0.9); EOSINOPHILS % (AUTO) 1.4 % (0-6); HEMATOCRIT 23.7 % (42.0-52.0); LYMPHOCYTES # (AUTO) 0.4 X10'3 (1.1-4.8); LYMPHOCYTES % (AUTO) 6.3 % (21-51); MEAN CORPUSCULAR HEMOGLOBIN 30.2 PG (27.0-31.0); MEAN CORPUSCULAR HGB CONC 33.8 g/dL (33.0-36.5); MEAN CORPUSCULAR VOLUME 89.1 FL (78-98); MEAN PLATELET VOLUME 9.1 FL (7.4-10.4); MONOCYTES # (AUTO) 0.4 X10'3 (0-0.9); MONOCYTES % (AUTO) 6.2 % (2-12); NEUTROPHILS # (AUTO) 6.1 X10'3 (1.8-7.7); NEUTROPHILS % (AUTO) 85.8 % (42-75); PLATELET COUNT 87 X10'3 (140-440); RED BLOOD COUNT 2.66 X10'6 (4.70-6.10); WHITE BLOOD COUNT 7.1 X10'3 (4.5-11.0)
[2023-09-17] MEDS: magnesium citrate 296ml oral solution PO ONE (12:35)
[2023-09-17] MEDS: DICLOFENAC SODIUM 1% gel 1 APPLIC APPLIC TP SCH (12:36)
[2023-09-17] MEDS: amiodarone 200mg tablet PO SCH (13:04)
[2023-09-17] MEDS ORDERED: ondansetron 4mg rapidly disintigrating tab PO PRN (14:55)
[2023-09-18] VITALS (8 sets, daily range): BP systolic 96–126; BP diastolic 58–70; PULSE 90–108; RESP 13–20; TEMP 97–98.7; O2SAT 96–100
[2023-09-18 06:17] LABS: BASOPHILS % (AUTO) 0.3 % (0-1); EOSINOPHILS # (AUTO) 0.1 X10'3 (0-0.9); EOSINOPHILS % (AUTO) 1.1 % (0-6); HEMOGLOBIN 7.4 g/dl (14.0-17.9); LYMPHOCYTES # (AUTO) 0.3 X10'3 (1.1-4.8); LYMPHOCYTES % (AUTO) 5.2 % (21-51); MEAN CORPUSCULAR HEMOGLOBIN 30.6 PG (27.0-31.0); MEAN CORPUSCULAR HGB CONC 34.3 g/dL (33.0-36.5); MEAN CORPUSCULAR VOLUME 89.1 FL (78-98); MEAN PLATELET VOLUME 9.5 FL (7.4-10.4); MONOCYTES # (AUTO) 0.2 X10'3 (0-0.9); MONOCYTES % (AUTO) 4.5 % (2-12); NEUTROPHILS # (AUTO) 4.8 X10'3 (1.8-7.7); NEUTROPHILS % (AUTO) 88.9 % (42-75); PLATELET COUNT 80 X10'3 (140-440); RED BLOOD COUNT 2.42 X10'6 (4.70-6.10); RED CELL DISTRIBUTION WIDTH 13.9 % (11.5-14.5); WHITE BLOOD COUNT 5.5 X10'3 (4.5-11.0)
[2023-09-18 06:22] LABS: HEMATOCRIT 21.6 % (42.0-52.0)
[2023-09-18 06:31] LABS: ALBUMIN 2.7 G/DL (3.4-5.0); ANION GAP 9 (8-16); BLOOD UREA NITROGEN 13 MG/DL (7-18); BUN/CREATININE RATIO 10.7 (10.0-20.0); CALCIUM 8.3 MG/DL (8.5-10.1); CHLORIDE 99 MMOL/L (99-107); CREATININE 1.22 MG/DL (0.60-1.10); GLUCOSE 133 MG/DL (70-104); MAGNESIUM 1.8 MG/DL (1.5-2.4); PHOSPHORUS 3.6 MG/DL (2.3-4.5); POTASSIUM 5.1 MMOL/L (3.5-5.1); SODIUM 133 MMOL/L (135-145); TOTAL CARBON DIOXIDE 25.4 MMOL/L (24-32); eCRCL 58 ML/MIN; eGFR 60 ML/MIN
[2023-09-18] MEDS: furosemide 20MG tablet PO SCH (08:49)
[2023-09-18] MEDS ORDERED: POTA-206 PO ×2 (10:02→10:26)
[2023-09-18] MEDS ORDERED: ATOR10TA PO (10:02)
[2023-09-18] MEDS ORDERED: TRAM50TA2 PO (10:02)
[2023-09-18] MEDS ORDERED: AMI200T PO (10:02)
[2023-09-18] MEDS ORDERED: FURO20TA4 PO (10:02)
[2023-09-18] MEDS ORDERED: SPIR25TA PO (10:02)
[2023-09-18] MEDS ORDERED: APIX5TAB3 PO (10:05)
== END 2023-09-18 12:12 | disposition home health service (06) | DRG 219 ==
LOC: PAS IN 05:37 → CICU 2S 09:30 → PCU 3S 09-14 17:08
PROVIDERS: ADMIT Thoracic Surgery (Cardiothoracic Vascular Surgery); ATTEND Thoracic Surgery (Cardiothoracic Vascular Surgery)
PROC: 02UX0JZ Supplement Thoracic Aorta, Ascending/Arch with Synthetic Substitute, Open Approach (ICD-10-PCS; 2023-09-11)
PROC: 027 Heart and Great Vessels, Dilation (ICD-10-PCS; 2023-09-11)
PROC: 5A1221Z Performance of Cardiac Output, Continuous (ICD-10-PCS; 2023-09-11)
PROC: B24BZZ4 Ultrasonography of Heart with Aorta, Transesophageal (ICD-10-PCS; 2023-09-11)
PROC: 02RF08Z Replacement of Aortic Valve with Zooplastic Tissue, Open Approach (ICD-10-PCS; principal; 2023-09-11 08:58)
DX: I35.0 Nonrheumatic aortic (valve) stenosis (principal); N17.0 Acute kidney failure with tubular necrosis; I25.10 Atherosclerotic heart disease of native coronary artery without angina pectoris; I10 Essential (primary) hypertension; D64.9 Anemia, unspecified; I48.91 Unspecified atrial fibrillation; E78.5 Hyperlipidemia, unspecified; E11.9 Type 2 diabetes mellitus without complications; D69.6 Thrombocytopenia, unspecified; Z91.09 Other allergy status, other than to drugs and biological substances
CPT/HCPCS: 0232T; 93306; 93312; 93325; 36415; 36600; 71045; 71046; 76376; 80047; 80048; 80053; 81001; 82330; 82435; 82565; 82803; 82947; 82948; 83036; 83735; 84100; 84132; 84295; 85018; 85025; 85347; 85384; 85610; 85730; 86022; 86885; 86900; 86901; 86920; 87081; 88300; 93005; 93970; 93971; 94002; 94003; 94640; 94668; 94760; 97116; 97162; 97530; A4333; A4615; A4618; A6258; A6449; A7000; A7015; C1751; C1768; C9290; G0378; J0131; J0282; J0610; J0690; J1170; J1250; J1644; J1720; J1815; J1940; J2150; J2250; J2405; J2704; J2720; J2765; J2919; J3010; J3475; J3480; J3490; J7030; J7040; J7050; J7060; J7120; P9045; P9047

== ENCOUNTER 2024-09-16 09:34 | Inpatient (IN) | payer MEDICARE, BC ==
[~2024-09-16] VITALS: Ht 172.7 cm; Wt 100.0 kg
[2024-09-16] VITALS (24 sets, daily range): BP systolic 120–171; BP diastolic 62–87; PULSE 65–107; RESP 9–20; TEMP 96.7–97.8; O2SAT 95–97
[~2024-09-16 09:34] MED LIST changes: +AMI200T PO; +APIX5TAB3 PO; +ATOR10TA PO; +FURO20TA4 PO; -HYDR12.55 PO; -LOSA100T58 PO; -MIDAZolam 1 MG/ML 5ML VIAL IV ONE; +POTA-206 PO; +SPIR25TA PO; +TRAM50TA2 PO; -dextrose 50%-water 50ml dispensing syringe IV PRN; -insulin glargine (Lantus) pen - multi-dose SQ PRN
--- NOTE | 2024-09-16 09:44 | ELECTROCARDIOGRAPH REPORT ---
[facility] Test Date: 2024-09-16 Test Time: 09:42:39 Pat Name: EDGAR WALLER Department: EMERGENCY ROOM Room: [place] [address] Gender: M [employer]usement [employer] Worker: EDDIE : 1955 Requested By: MAY MACIAS Order Number: [id number] Reading MD: Dr. David Licona Measurements Intervals [place] Rate: 82 P: 7 IL: 175 QRS: -90 QRSD: 179 T: 72 QT: 447 QTc: 522 Interpretive Statements Sinus rhythm Probable left atrial enlargement RBBB and LAFB Electronically Signed On 09-25-2024 18:43:[address] David Licona Please click the below link to view image of tracing.
[2024-09-16 10:07] LABS: BASOPHILS % (AUTO) 0.2 % (0-1); EOSINOPHILS % (AUTO) 0 % (0-6); HEMATOCRIT 46.8 % (42.0-52.0); HEMOGLOBIN 16.4 g/dl (14.0-17.9); LYMPHOCYTES # (AUTO) 0.6 X10'3 (1.1-4.8); LYMPHOCYTES % (AUTO) 6.3 % (21-51); MEAN CORPUSCULAR HEMOGLOBIN 29.3 PG (27.0-31.0); MEAN CORPUSCULAR HGB CONC 35.1 g/dL (33.0-36.5); MEAN CORPUSCULAR VOLUME 83.7 FL (78-98); MEAN PLATELET VOLUME 9.3 FL (7.4-10.4); MONOCYTES # (AUTO) 0.2 X10'3 (0-0.9); MONOCYTES % (AUTO) 1.9 % (2-12); NEUTROPHILS # (AUTO) 9.2 X10'3 (1.8-7.7); NEUTROPHILS % (AUTO) 91.6 % (42-75); PLATELET COUNT 91 X10'3 (140-440); RED BLOOD COUNT 5.59 X10'6 (4.70-6.10); RED CELL DISTRIBUTION WIDTH 14.9 % (11.5-14.5)
--- NOTE | 2024-09-16 10:23 | RADIOLOGY REPORT ---
CHEST RADIOGRAPH Indication: CP Technique: Single frontal view of the chest was obtained COMPARISON: DI CHEST,SINGLE VIEW on DOS: 09/17/23, DI CHEST,SINGLE VIEW on DOS: 09/15/23, DI CHEST,SING LE VIEW on DOS: 09/14/23, DI CHEST,SINGLE VIEW on DOS: 09/13/23, DI CHEST,SINGLE VIEW on DOS: 09/12/23 FINDINGS: Lines and Tubes: Median sternotomy Lungs: Clear Pleura: No effusion. No pneumothorax. Cardiomediastinal contours: Unremarkable Bones: Unremarkable IMPRESSION: No acute disease.
[2024-09-16 10:30] LABS: ALBUMIN 3.9 G/DL (3.4-5.0); ANION GAP 11 (8-16); BLOOD UREA NITROGEN 17 MG/DL (7-18); BUN/CREATININE RATIO 16.3 (10.0-20.0); CALCIUM 9.2 MG/DL (8.5-10.1); CHLORIDE 104 MMOL/L (99-107); CREATININE 1.04 MG/DL (0.60-1.10); GLUCOSE 160 MG/DL (70-104); POTASSIUM 4.1 MMOL/L (3.5-5.1); SODIUM 140 MMOL/L (135-145); TOTAL CARBON DIOXIDE 24.6 MMOL/L (24-32); eCRCL 68 ML/MIN; eGFR 71 ML/MIN
[2024-09-16] MEDS ORDERED: EZET10TA48 PO (10:46)
[2024-09-16] MEDS ORDERED: BENA10TA75 PO (10:46)
--- NOTE | 2024-09-16 10:47 | Physician Documentation ---
History of Present Illness ~ Chief Complaint: Hypertension Stated Complaint: HYPERTENSION Time Seen by MD: 10:34 Primary Medical Doctor: DR. MCBRIDE. DR. BURGESS HPI 68-YEAR-OLD MALE PRESENTS TO THE ED WITH A COMPLAINT OF ELEVATED BLOOD PRESSURES OVER THE LAST 2-3 DAYS. HE SAYS THAT HE WAS SEEN AT [employer] YESTERDAY AND HIS COREG WAS INCREASED HOWEVER TODAY HE HAD BLOOD PRESSURES OVER 200 SYSTOLIC. CHEST PAIN/SOB OR HEADACHES NAUSEA VOMITING IN HIS GENERALLY ASYMPTOMATIC. HE ALSO HAS A COMPLEX CARDIAC HISTORY INCLUDING AORTIC VALVE REPLACEMENT AND ATRIAL FIBRILLATION. HAVE THAT WHEN HE WAS AT HIS NURSE'S AIDES TEACHER'S HISTORY IN THE GAVE HIM TO NITRO PILLS WHICH DECREASE HIS PRESSURE. Day of Onset: Sep 16, 2024 Medication Reconciliation Allergies: Coded Allergies: No Known Drug Allergies (Verified Allergy, Unknown, 09/10/23) Uncoded Allergies: TITANIUM (NEGAR) FROM ORTHO SURGERY (Allergy, Unknown, 05/03/23) Scheduled Amiodarone Hcl (Cordarone), 200 MG PO BID Apixaban (Eliquis), 1 TAB PO Q12H Aspirin (Aspir 81), 1 TAB PO PRN, (Reported) Atorvastatin Calcium (Lipitor), 10 MG PO HS Benazepril HCl (Benazepril HCl), 1 TAB PO DAILY, (Reported) Carvedilol (Carvedilol), 1 TAB PO BID, (Reported) Ezetimibe (Ezetimibe), 1 TAB PO DAILY, (Reported) Furosemide (Furosemide), 20 MG PO DAILY Pioglitazone Hcl* (Actos*), 30 MG PO DAILY, (Reported) Potassium Chloride (K-Dur), 10 MEQ PO DAILY Spironolactone (Aldactone), 25 MG PO DAILY@0830 Scheduled PRN Meloxicam* (Meloxicam*), 1 TAB PO DAILY PRN for pain, (Reported) Tramadol Hcl (Tramadol Hcl), 50 MG PO Q4H PRN for pain Past Medical History Past Medical History: *CARDIOVASCULAR*, Hypertension, Diabetes Past Surgical History: orthopedic surgeries Patient History: FH: diabetes mellitus MOTHER FAMILY/OTHER, Name: berny FH: heart disease FATHER FH: kidney disease FAMILY/OTHER, Name: karlie Leaky heart valve FAMILY/OTHER, Name: gissel Alcohol Use: None Drug Use: none Lives with: Family Lives In: Home Review of Systems All Other Systems at this time: Reviewed and Negative ROS As stated above in the HPI, otherwise all systems are reviewed and negative. Physical Exam Vital Signs: Temperature: 98.3, Source: Temporal, Heart Rate: 83, Respiratory Rate: 12, Pulse Oximetry: 98, Weight: 100.000 Physical Exam General: Alert, no apparent distress. Respiratory: Lungs clear, no respiratory distress. Chest: No accessory muscle use. Cardiovascular: Regular rate and rhythm, no murmurs. Neurologic: Oriented x4. Psychiatric: Normal mood and affect. Skin: Normal color, warm and dry. No edema, no ecchymosis. Progress Results/Orders Results/Orders Orders - LEENA STERN OIL SPRAYER Page Hospitalist (09/16/24 ) Admit Orders (09/16/24 12:51) Completed Orders - LEENA STERN OIL SPRAYER Hydralazine Inj. (Apresoline Inj.) (09/16/24 10:50) Medications Received in ER Medications (Trade) Dose Ordered Sig/Eugenio Route PRN Reason Start Time Stop Time Status Last Admin Dose Admin (Apresoline inj.) 10 mg ONCE ONCE IV 09/16/24 10:50 09/16/24 10:51 DC 09/16/24 11:03 10 MG Sodium Chloride 1,000 ml @ 100 mls/hr Q10H IV 09/16/24 11:25 09/16/24 11:49 100 MLS/HR Vital Signs 09/16/24 09/16/24 09/16/24 09/16/24 09:37 09:50 10:48 11:03 Temp 98.3 Pulse 83 71 69 Resp 15 12 20 B/P (MAP) 180/80 (113) Pulse Ox 98 97 Laboratory Tests Test 09/16/24 09:48 09/16/24 11:44 09/16/24 12:03 09/16/24 12:32 White Blood Count 10.0 Red Blood Count 5.59 Hemoglobin 16.4 Hematocrit 46.8 Mean Corpuscular Volume 83.7 Mean Corpuscular Hemoglobin 29.3 Mean Corpuscular Hemoglobin Concent 35.1 Red Cell Distribution Width 14.9 H Platelet Count 91 L Mean Platelet Volume 9.3 Neutrophils (%) (Auto) 91.6 H Lymphocytes (%) (Auto) 6.3 L Monocytes (%) (Auto) 1.9 L Eosinophils (%) (Auto) 0 Basophils (%) (Auto) 0.2 Neutrophils # (Auto) 9.2 H Lymphocytes # (Auto) 0.6 L Monocytes # (Auto) 0.2 Eosinophils # (Auto) 0.0 Basophils # (Auto) 0.0 CBC Comment Prothrombin Time 10.9 INR International Normalized Ratio 1.1 Activated Partial Thromboplast Time 26 Coagulation Comments Sodium Level 140 Potassium Level 4.1 Chloride Level 104 Carbon Dioxide Level 24.6 Anion Gap 11 Blood Urea Nitrogen 17 Creatinine 1.04 Estimated GFR/1.73 m2 71 BUN/Creatinine Ratio 16.3 Glucose Level 160 H Hemoglobin A1c 5.1 Calcium Level 9.2 Phosphorus Level 2.5 Magnesium Level 1.7 Troponin I High Sensitivity 8 9 Pro-B-Type Natriuretic Peptide 234 H Albumin 3.9 Chemistry Comments Urine Specimen Description Cln catch midstream Urine Color Yellow Urine Clarity Clear Urine pH 6.0 Urine Specific Crawford 1.010 Urine Protein 30 H Urine Glucose (UA) Negative Urine Ketones Negative Urine Occult Blood Negative Urine Nitrite Negative Urine Bilirubin Negative Urine Urobilinogen 0.2 Urine Leukocyte Esterase Negative Urine RBC 0-2 Urine WBC 0-4 Urine Squamous Epithelial Cells Few Urine Uric Acid Crystals Few Urine Amorphous Urates 1+ Urine Bacteria None seen Urine Culture Indicated Not ind Volume Urine Centrifuged 10 ml Urine Comment Troponin I High Sens Percent Delta 12 Troponin I Hi Sens Absolute Change 1 Glucometer 147 H Medical Decision Making Findings WITH THE PATIENT'S CARDIAC HISTORY AN UNEXPLAINED HYPERTENSION I DO NOT SEE HIM A SAFE DISCHARGE. REQUEST HOSPITALIZATION AND POSSIBLE ECHOCARDIOGRAM. STATES HIS LAST ECHO WAS OVER A YEAR AGO Differential Dx:Considerations: Include CHF, Include HTN, essential, Include HTN, accelerated, Include HTN, malignant, Include HTN, encephalopathy, Include medical noncompliance, Include medication withdrawal, Include pulmonary edema, Include renal failure, Include -induced, Include other Departure Disposition: 09 ADMITTED INPATIENT Impression: Primary Impression: Aortic stenosis Additional Impression: Hypertensive urgency Referrals: NO PRIMARY CARE PROVIDER (PCP) Signature Scribe Signature: d Attestation: Scribed for Leena Stern [employer]nut [employer] Machine by Leena Flores NP . 09/16/24 18:27 LEENA STERN NP Sep 16, 2024 10:47
[2024-09-16] MEDS: hydrALAZINE 20mg/ml inj. IV ONE (11:03)
--- NOTE | 2024-09-16 11:09 | HISTORY AND PHYSICAL ---
History & Physical Providers to CC Chief complaint, elevated blood pressure, headaches ~ History of Present Illness Reason for Admit\Complaint: As above History of Present Illness This is a 68-YEAR-OLD MALE , with history of aortic valve replacement, thrombocytopenia, diabetes mellitus type 2, CHF ejection fraction 70% August 2023, dyslipidemia, presented today to emergency department chief complaint elevated blood pressure associated with headaches, in addition patient PRESENTS TO THE ED WITH A COMPLAINT OF ELEVATED BLOOD PRESSURES OVER THE LAST 2-3 DAYS. HE SAYS THAT HE WAS SEEN AT [employer] YESTERDAY AND HIS COREG WAS INCREASED HOWEVER TODAY HE HAD BLOOD PRESSURES OVER 200 SYSTOLIC. Denies CHEST PAIN/SOB OR NAUSEA VOMITING ; patient says that has intermittently headaches bifrontal, pressure type in character without radiation, improving with controlling blood pressure, getting worse after nitroglycerin. HE ALSO HAS A COMPLEX CARDIAC HISTORY INCLUDING AORTIC VALVE REPLACEMENT AND ATRIAL FIBRILLATION. HAVE THAT WHEN HE WAS AT HIS [employer] ARTIST MODEL'S HISTORY IN THE GAVE HIM TO NITRO PILLS WHICH DECREASE HIS PRESSURE. Day of Onset: Sep 16, 2024 emergency department he was evaluated by medical provider, was diagnosed with hypertensive emergency, and decision was made to admit patient for further evaluation and treatment. No additional complaint or concern. Patient started on Cardene drip infusion. Allergies: Coded Allergies: No Known Drug Allergies (Verified Allergy, Unknown, 09/10/23) Uncoded Allergies: TITANIUM (NEGAR) FROM ORTHO SURGERY (Allergy, Unknown, 05/03/23) Active prescriptions As above Home Medications Home Medications Active K-Dur (Potassium Chloride) 10 Meq Tab.prt.sr 10 Meq PO DAILY Eliquis (Apixaban) 5 Mg Tablet 1 Tab PO Q12H 30 Days Furosemide 20 Mg Tablet 20 Mg PO DAILY Tramadol Hcl (Tramadol HCl) 50 Mg Tablet 50 Mg PO Q4H PRN Aldactone (Spironolactone) 25 Mg Tablet 25 Mg PO DAILY@0830 Lipitor (Atorvastatin Calcium) 10 Mg Tablet 10 Mg PO HS Cordarone (Amiodarone HCl) 200 Mg Tablet 200 Mg PO BID Reported Ezetimibe 10 Mg Tablet 1 Tab PO DAILY Benazepril HCl 10 Mg Tablet 1 Tab PO DAILY Aspir 81 (Aspirin) 81 Mg Tablet. 1 Tab PO PRN Meloxicam* (Meloxicam) 7.5 Mg Tablet 1 Tab PO DAILY PRN Carvedilol 6.25 Mg Tablet 1 Tab PO BID Actos* (Pioglitazone HCl) 15 Mg Tablet 30 Mg PO DAILY Past Medical History Past Medical History As in HPI Past Surgical History Surgical History Comment History of aortic valve replacement Family History Family History: Family history was reviewed; no changes noted. Past Social History Social History Comment Deny illicit drug abuse tobacco alcohol use, live with the family good social support Health Maintenance Health Maintenance Noncontributory ROS ROS Constitutional : no fever , no chills, or weakness. No diaphoresis. Allergic/Immunologic, no lymphadenopathy, no hives, no skin eruptions. Eyes, no recent visual changes, no eye pain, no photophobia. Ears, nose, mouth, throat, no sore throat, no nosebleed, no ear pain. Cardiovascular, no palpitations, skipped beats, chest pain, no peripheral edema, positive for elevated blood pressure Respiratory, no dyspnea, orthopnea, cough, hemoptysis, chest wall pain. Gastrointestinal, no abdominal pain, nausea, vomiting, constipation or diarrhea. : no dysuria, hematuria, pelvic pain, urethral d/c. Endocrine, no polyuria, polydipsia, recent unintentional weight gain or loss. Hematologic/Lymphatic, no petechiae, no enlarged lymph nodes, no bone pain. Integumentary, no rash, no skin lesions, Musculoskeletal, no muscle aches, or pain, no muscle cramps, no recent change in gait Neurological, no dizziness, positive for headache, no syncope, no paresthesia. Psychiatric, no delusions, visual hallucinations, or hearing hallucinations. ROS - in rest is as in HPI. Exam Vitals: Vital Signs Date Time Temp Pulse Resp B/P (MAP) Pulse Ox O2 Delivery O2 Flow Rate FiO2 09/16/24 11:03 69 09/16/24 10:48 20 180/80 (113) 97 09/16/24 09:37 98.3 Vital signs, stable ,afebrile. Elevated blood pressure noticed, Pulse Oximetry reflects adequate oxygenation. BMI is 33, weight 100 kg General: well developed, well nourished. Awake , alert, and oriented x4, resting comfortably in the bed, in no acute distress . Skin: Warm, dry, no pallor, no rash or petechiae. HEENT: Atraumatic, normocephalic, EOMI, anicteric sclera B; pink conjunctiva; PERRLA, normal oropharynx, moist oral and nasal mucosa. Tympanic membrane , nose , throat clear. Neck: Trachea midline. Supple, full range of motion, no JVD, bruit , hepatojugular reflex , lymphadenopathy or masses, or other lesions Cardiac: Regular rhythm, regular rate no murmurs, rubs, or gallops. Normal S1 and S2, no S3 noticed. PMI is normal. Respiratory: Equal breath sounds bilaterally, no tachypnea; lungs clear to auscultation bilaterally, no wheezing ,rub or rales, or crackles. Chest wall is symmetric and without deformity. No signs of trauma. Chest wall is nontender. No signs of respiratory distress. Resonance is normal upon percussion bilaterally. Gastrointestinal: Abdomen symmetric, non-distended, soft, non-tender, normal bowel sounds x4 quadrant, normoactive, no hepatosplenomegaly , no masses , no bruit, no flank pain bilaterally. No voluntary guarding, rebound, or rigidity. No tenderness to percussion. No pulsatile masses. Equal femoral pulses. No Eli's sign or McBurney point tenderness. Back; no CVA tenderness bilaterally, no deformities. Neck and back are without deformity as well. No tenderness noted on palpation of the spinous processes. Spinous processes are midline. Cervical, thoracic, and lumbar paraspinal muscles are not tender and are without spasm. : normal external genitalia, without lesions, swelling, masses or tenderness. Musculoskeletal: Extremities, normal range of motion, non-tender, muscle strength 5/5 x 4. Negative Homans signs bilaterally on lower extremity. Distal pulses full symmetrical, no clubbing, cyanosis , edema. Neurological: Speech is clear, alert, and oriented x 4. No motor or sensory deficit, deep tendon reflexes normal, cerebellar intact. Cranial nerves II-XII intact. Psych: Alert and or appropriate, normal affect. Vascular: Good distal pulses, which are equal x4; capillary refill less than 2 seconds. Lymphatic, no lymphadenopathy. Diagnostic Data Last Recorded Lab Results: 09/16/2448 09/16/2448 Advance Care Planning Advanced Care plannin - 30 Minutes Additional Plan Assessment Hypertensive emergency Thrombocytopenia platelets 91 Atrial fibrillation on home Eliquis, controlled ventricular rate Diabetes mellitus type 2 poor control Diastolic CHF ejection fraction 70% August 2023, mild exacerbation Dyslipidemia History of aortic valve replacement Plan IV fluids keep patient well hydrated euvolemic Started on Cardene infusion Hyperglycemia sliding scale I reconciled home Medications DVT gastropathy prophylaxis addressed Additional lab work pending Sepsis Screening Reassessment Date: Sep 16, 2024 Date of Service: Sep 16, 2024 Billing Provider: HERMELINDA YOUNG MD Common Visit Codes: [id number] INP/OBS CARE (HIGH) Secondary Visit Codes: [id number] CARE PLAN 30 MINUTES HERMELINDA YOUNG MD Sep 16, 2024 11:08
[2024-09-16] MEDS ORDERED: morphine 2 MG/ML inj. syringe IV PRN ×2 (11:25)
[2024-09-16] MEDS ORDERED: mag hydrox/Alum hydrox/simeth 30ml oral suspension PO PRN (11:25)
[2024-09-16] MEDS ORDERED: bisacodyl 10mg suppository rectal RC PRN (11:25)
[2024-09-16] MEDS ORDERED: diphenhydrAMINE 50 mg/ml inj IV PRN (11:25)
[2024-09-16] MEDS ORDERED: HYDROcodone/acetaminophen 5mg/325mg tablet PO PRN (11:25)
[2024-09-16] MEDS ORDERED: diphenhydrAMINE 25mg capsule PO PRN (11:25)
[2024-09-16] MEDS ORDERED: ondansetron/PF 4mg/2ml inj IV PRN (11:25)
[2024-09-16] MEDS ORDERED: ondansetron 4mg rapidly disintigrating tab PO PRN (11:25)
[2024-09-16] MEDS ORDERED: HYDROcodone/acetaminophen 10/325mg tab PO PRN (11:25)
[2024-09-16] MEDS ORDERED: acetaminophen 325mg tablet PO PRN (11:25)
[2024-09-16] MEDS ORDERED: acetaminophen 650mg rectal suppository RC PRN (11:25)
[2024-09-16] MEDS ORDERED: magnesium hydroxide 30ml (MOM) UD suspension PO PRN (11:25)
[2024-09-16] MEDS ORDERED: glucagon, human recombinant 1mg kit SUBCUT PRN (11:35)
[2024-09-16] MEDS ORDERED: dextrose 50%-water 50ml dispensing syringe IV PRN ×2 (11:35)
[2024-09-16] MEDS ORDERED: DEXTROSE 15 GM of carb/4 tabs (each vial/BOTTLE has 4 tablets) PO PRN ×2 (11:35)
[2024-09-16] MEDS ORDERED: niCARDipine-NS 40mg/200ml IVPB 200 ML IV SCH ×2 (11:35→12:48)
[2024-09-16] MEDS: normal saline 1000ml 1,000 ML IV SCH (11:49)
[2024-09-16 11:55] LABS: PRO BRAIN NATRIURETIC PEPTIDE 234 PG/ML (0-125)
[2024-09-16] MEDS: INSULIN LISPRO 100 UNIT/ML INSULN.PEN MULTI-DOSE SQ SCH (12:00)
[2024-09-16 12:03] LABS: APTT 26 SECONDS (22-32); INR 1.1 INR; PROTHROMBIN TIME 10.9 SECONDS (9.0-12.0)
[2024-09-16 12:10] LABS: BILIRUBIN,URINE NEGATIVE (Neg); CLARITY,URINE CLEAR (Clear); COLOR,URINE YELLOW (Yellow); GLUCOSE, URINE NEGATIVE (Neg); KETONES,URINE NEGATIVE (Neg); LEUKOCYTE ESTERASE ,URINE NEGATIVE (Neg); NITRITES, URINE NEGATIVE (Neg); OCCULT BLOOD,URINE NEGATIVE (Neg); PROTEIN,URINE 30 mg/dl (Neg); UROBILINOGEN,URINE 0.2 E.U/dL (0.2-1.0)
[2024-09-16 12:12] LABS: UA COLLECTION TYPE CLN CATCH MIDSTREAM
[2024-09-16 12:12] LABS: MAGNESIUM 1.7 MG/DL (1.5-2.4); PHOSPHORUS 2.5 MG/DL (2.3-4.5)
[2024-09-16 12:21] LABS: URIC ACID CRYSTALS FEW /HPF (NEGATIVE)
[2024-09-16 12:28] LABS: AMORPHOUS URATES 1+; BACTERIA,URINE NONE SEEN /HPF (Neg); RBC,URINE 0-2 /HPF (0-2); SQUAMOUS EPITHELIAL CELL,UR FEW /LPF (FEW); WBC,URINE 0-4 /HPF (0-4)
[2024-09-16 12:35] LABS: HEMOGLOBIN A1C 5.1 % (4.5-6.2)
[2024-09-16] MEDS: niCARDipine-NS 40mg/200ml IVPB 200 ML IV SCH (14:15)
[2024-09-16] MEDS ORDERED: CARV-50 PO (19:42)
[2024-09-16] MEDS ORDERED: MELOXICAM 7.5 MG TABLET PO PRN (19:55)
[2024-09-16] MEDS ORDERED: aspirin 81mg tab.chew PO SCH (19:55)
[2024-09-16] MEDS: docusate sod 100mg capsule PO SCH (20:00)
[2024-09-16] MEDS ORDERED: temazepam 15mg capsule PO PRN (21:00)
[2024-09-16] MEDS: insulin glargine (Lantus) pen - multi-dose SQ SCH (21:00)
[2024-09-17] VITALS (23 sets, daily range): BP systolic 131–190; BP diastolic 69–97; PULSE 53–98; RESP 10–20; TEMP 96.5–97.9; O2SAT 97–100
[2024-09-17] MEDS: lisinopril 10 MG tablet PO ONE ×2 (00:58→22:04)
[2024-09-17] MEDS: amLODIPine 5mg tablet PO ONE (00:58)
[2024-09-17] MEDS: acetaminophen 325mg tablet PO PRN (00:59)
[2024-09-17 05:26] LABS: BASOPHILS % (AUTO) 0.4 % (0-1); EOSINOPHILS % (AUTO) 0.1 % (0-6); HEMATOCRIT 42.1 % (42.0-52.0); HEMOGLOBIN 14.6 g/dl (14.0-17.9); LYMPHOCYTES # (AUTO) 0.9 X10'3 (1.1-4.8); LYMPHOCYTES % (AUTO) 11.2 % (21-51); MEAN CORPUSCULAR HEMOGLOBIN 29.5 PG (27.0-31.0); MEAN CORPUSCULAR HGB CONC 34.8 g/dL (33.0-36.5); MEAN CORPUSCULAR VOLUME 84.7 FL (78-98); MEAN PLATELET VOLUME 8.8 FL (7.4-10.4); MONOCYTES # (AUTO) 0.4 X10'3 (0-0.9); MONOCYTES % (AUTO) 4.8 % (2-12); NEUTROPHILS % (AUTO) 83.5 % (42-75); PLATELET COUNT 90 X10'3 (140-440); RED BLOOD COUNT 4.97 X10'6 (4.70-6.10); RED CELL DISTRIBUTION WIDTH 14.7 % (11.5-14.5); WHITE BLOOD COUNT 8.4 X10'3 (4.5-11.0)
[2024-09-17 05:47] LABS: GLUCOSE 137 MG/DL (70-104)
[2024-09-17 05:48] LABS: ALANINE AMINOTRANSFERASE 27 U/L (12-78); ALBUMIN 3.4 G/DL (3.4-5.0); ALBUMIN/GLOBULIN RATIO 1.2 (1.1-1.5); ALKALINE PHOSPHATASE 117 IU/L (46-116); ANION GAP 9 (8-16); ASPARTATE AMINO TRANSFERASE 25 U/L (10-37); BILIRUBIN,TOTAL 0.6 MG/DL (0.1-1.0); BLOOD UREA NITROGEN 18 MG/DL (7-18); BUN/CREATININE RATIO 17.6 (10.0-20.0); CALCIUM 8.4 MG/DL (8.5-10.1); CHLORIDE 106 MMOL/L (99-107); CHOL/HDL RATIO 2.9 (0.00-4.99); CHOLESTEROL 161 MG/DL (0-200); CREATININE 1.02 MG/DL (0.60-1.10); HDL CHOLESTEROL 55 MG/DL (35-60); LDL CHOLESTEROL 84 MG/DL (50-100); POTASSIUM 3.9 MMOL/L (3.5-5.1); SODIUM 141 MMOL/L (135-145); TOTAL CARBON DIOXIDE 26.2 MMOL/L (24-32); TOTAL PROTEIN 6.3 G/DL (6.4-8.2); TRIGLYCERIDES 63 MG/DL (20-135); eCRCL 69 ML/MIN; eGFR 73 ML/MIN
[2024-09-17] MEDS: amLODIPine 5mg tablet PO SCH (08:01)
[2024-09-17] MEDS: lisinopril 10 MG tablet PO SCH (08:02)
[2024-09-17] MEDS: pantoprazole 40mg Tablet.DR PO SCH (08:03)
[2024-09-17] MEDS: ezetimibe 10mg tablet PO SCH (08:03)
--- NOTE | 2024-09-17 12:07 | PROGRESS NOTE- Residence ---
Progress Note - Resident Providers to CC Resident Creating Document: ANGLE BROOKS RES ~ Antibiotic Timeout Antibiotic Ordered?: No Subjective Patient seen and examined at bedside. Blood pressure has been stable, nicardipine was discontinued last night, started amlodipine 10 p.o. daily in addition to home medication lisinopril 10 p.o. daily. Denies significant chest pains, diaphoresis, fevers/chills, nasal congestion, expectoration, palpitations, or weight loss/weight gain. Objective Vital Signs Date Time Temp Pulse Resp B/P (MAP) Pulse Ox O2 Delivery O2 Flow Rate FiO2 09/17/24 06:30 53 09/17/24 05:00 14 142/78 (99) 09/17/24 02:00 96.5 97 Room Air Result Diagram: 09/17/24 0507 09/17/24 0507 General: Awake and Alert, no acute distress. HEENT: Conjunctiva pink, Sclera clear, Mucus Membranes moist. Neck: Supple without masses and tenderness. Resp: Unlabored. Equal breath sounds bilaterally. Heart: Regular rhythm, normal S1 and S2, findings consistent with bioprosthetic aortic valve replacement (bovine valve). Abdomen: Soft and non tender no organomegaly. Normal bowel sounds x4 quadrant normoactive. No guarding or rigidity. Extremities: Normal ROM, no swelling, nontender. No cyanosis,clubbing or edema. MAINTENANCE TRAINER: No gross motor or sensory abnormalities. Skin: Warm and Dry. Coagulation Studies Laboratory Tests Test 09/16/24 09:48 Prothrombin Time 10.9 SECONDS (9.0-12.0) INR International Normalized Ratio 1.1 INR Activated Partial Thromboplast Time 26 SECONDS (22-32) Coagulation Comments Assessment Assessment 69-year-old male with history of hypertension, aortic valve stenosis status post valve replacement with root enlargement, hyperlipidemia presented to the ED with concerns of hypertensive urgency. Plan Plan Hypertensive urgency Hypertensive emergency ruled out Blood pressure on admission 180/80 Was started on a nicardipine drip DC nicardipine drip last night, was started on amlodipine 10 p.o. daily, continue home medication benazepril 10 p.o. daily Blood pressure has been stable 142/78 this morning Electrolytes within normal limits Lipid profile within normal range Continue p.o. blood pressure medications, if blood pressure remained stable he can be discharged in a.m. Echo EF 70-75%, Follow up with echo final report Thrombocytopenia AFib controlled ventricular rate on Eliquis CHF ruled out, EF 70-75% RVSP 46, no signs of fluid overload noted History of hyperlipidemia History of aortic stenosis status post aortic valve replacement with root enlargement Home medication: Continue aspirin 81 p.o. daily Continue benazepril 10 p.o. daily Continue Zetia 10 mg p.o. daily Continue pioglitazone 30 p.o. daily DC meloxicam 7.5 as it can tend to increase blood pressure DC/Decrease Coreg to 6.25 p.o. b.i.d. as he has been having bradycardia heart rate 53 Code Status: Full code Analgesia/sedation: None Line/tube: PIV GI prophylaxis: None Nutrition: Heart healthy Prognosis: Guarded Disposition: Continue medical management. Angle Brooks MD. IM Resident PGY-2 Date of Service: Sep 17, 2024 Billing Provider: JAYA ENAMORADO MD Common Visit Codes: [id number] INP/OBS CARE(HIGH) ANGLE BROOKS, RES Sep 17, 2024 12:07 JAYA ENAMORADO MD Sep 17, 2024 18:32
[2024-09-17] MEDS: hydrALAZINE 20mg/ml inj. IV PRN (18:55)
[2024-09-18] VITALS (13 sets, daily range): BP systolic 130–182; BP diastolic 69–90; PULSE 64–113; RESP 11–16; TEMP 97.2–98.5; O2SAT 97
[2024-09-18] MEDS: hydrALAZINE 20mg/ml inj. IV ONE (06:20)
[2024-09-18 06:38] LABS: BASOPHILS # (AUTO) 0.1 X10'3 (0-0.2); EOSINOPHILS % (AUTO) 0.3 % (0-6); WHITE BLOOD COUNT 9.7 X10'3 (4.5-11.0)
[2024-09-18 06:42] LABS: BASOPHILS % (AUTO) 0.8 % (0-1); HEMOGLOBIN 16.7 g/dl (14.0-17.9); LYMPHOCYTES # (AUTO) 1.7 X10'3 (1.1-4.8); LYMPHOCYTES % (AUTO) 17.1 % (21-51); MEAN CORPUSCULAR HEMOGLOBIN 29.7 PG (27.0-31.0); MEAN CORPUSCULAR HGB CONC 34.8 g/dL (33.0-36.5); MEAN CORPUSCULAR VOLUME 85.1 FL (78-98); MEAN PLATELET VOLUME 8.8 FL (7.4-10.4); MONOCYTES # (AUTO) 0.6 X10'3 (0-0.9); MONOCYTES % (AUTO) 6.1 % (2-12); NEUTROPHILS # (AUTO) 7.4 X10'3 (1.8-7.7); NEUTROPHILS % (AUTO) 75.7 % (42-75); PLATELET COUNT 103 X10'3 (140-440); RED BLOOD COUNT 5.64 X10'6 (4.70-6.10); RED CELL DISTRIBUTION WIDTH 14.9 % (11.5-14.5)
[2024-09-18 06:55] LABS: ALANINE AMINOTRANSFERASE 29 U/L (12-78); ALBUMIN 3.9 G/DL (3.4-5.0); ALBUMIN/GLOBULIN RATIO 1.2 (1.1-1.5); ALKALINE PHOSPHATASE 119 IU/L (46-116); ANION GAP 10 (8-16); ASPARTATE AMINO TRANSFERASE 21 U/L (10-37); BILIRUBIN,TOTAL 0.8 MG/DL (0.1-1.0); BLOOD UREA NITROGEN 21 MG/DL (7-18); BUN/CREATININE RATIO 19.1 (10.0-20.0); CALCIUM 9.2 MG/DL (8.5-10.1); CHLORIDE 106 MMOL/L (99-107); GLUCOSE 123 MG/DL (70-104); POTASSIUM 4.1 MMOL/L (3.5-5.1); SODIUM 143 MMOL/L (135-145); TOTAL CARBON DIOXIDE 27.3 MMOL/L (24-32); TOTAL PROTEIN 7.1 G/DL (6.4-8.2); eCRCL 64 ML/MIN; eGFR 67 ML/MIN
[2024-09-18] MEDS: lisinopril 20mg tablet PO SCH (07:42)
--- NOTE | 2024-09-18 10:17 | CARDIOLOGY REPORT ---
APPROVED REPORT EXAM: Comprehensive 2D, Doppler, and color-flow Echocardiogram. Patient Location: 302 Blood Pressure: 142/78 mmHg Heart Rate: 86 bpm Indications Congestive Heart Failure Hypertension 25 MM Brandt Inspiris AVR ProBNP: 234 MACHINE STACKER: Yasmany Flaherty MD Previous ECHO: 09/17/23, [facility], EF: 55; AVR GRAD: ; PKV: 2.01; modTR 2D Dimensions LA Diam3.4 cm IVSd 1.1 (0.7-1.1cm) LVDd 4.1 cm PWd 1.0 (0.7-1.1cm) IVSs 1.4 (0.8-1.2cm) LVDs 2.3 (2.5-4.0cm) PWs 1.8 (0.8-1.2cm) LVEF(%) 75.6 (>50%) Ao Asc Diam.2.64 cmIVC 8.25 mm FS (%) 43.9 % SV 54.7 ml CO 4.4 L/min M-Mode Dimensions Left Atrium(MM) 2.70 (2.5-4.0cm) Aortic Root 2.26 (2.2-3.7cm) MV EPSS 0.5 (<0.5cm) Aortic Valve AoV Peak Mykel. 188.9 cm/s AoV VTI 30.7 cm AO Peak GR. 14.3 mmHg AO Mean GR. 7 mmHg LVOT VTI 25.61 cm LVOT Peak Mykel. 121.4 cm/s Mitral Valve MV E Velocity 97.3 cm/s MV Peak Gr. 7 mmHg MV DECEL TIME 228 ms MV A Velocity 123.5 cm/s MV PHT 60 ms E/A Ratio 0.8 MVA (PHT) 3.67 cm2 MV EBpg545.7 cm/s TDI Lateral E' P. V11.63 cm/s E/Lateral E' 8.4 Tricuspid Valve TR P. Velocity 298 cm/s RAP ESTIMATE 10 mmHg TR Peak Gr. 36 mmHg RVSP 46 mmHg LEFT VENTRICLE Normal LV size and wall thickness. Overall systolic function is normal. LVEF is 70-75%. RIGHT VENTRICLE Right ventricle is mildly dilated with adequate function. ATRIA The left atrium size is normal. AORTIC VALVE Bioprosthetic,25 MM Brandt Inspiris AVR is present, well seated and functioning normally. Peak / kerri n gradients of 14 / 7 mmHg. Peak velocity is measured at 1.86 m/sec. Trivial insufficiency. MITRAL VALVE Mild mitral annular calcification without stenosis. Trace regurgitation. TRICUSPID VALVE The tricuspid valve is normal in structure with trace regurgitation. PULMONIC VALVE The pulmonary valve is normal in structure with physiologic insufficiency. GREAT VESSELS The aortic root is normal in size. The ascending aorta is normal in size. The IVC is normal in size a nd collapses >50% with inspiration. PERICARDIUM Normal pericardium. No effusion. Other Information Study Quality: Adequate Conclusion Normal LV size and wall thickness. Overall systolic function is normal. LVEF is 70-75%. Right ventricle is mildly dilated with adequate function. The left atrium size is normal. Bioprosthetic, 25 MM Brandt Inspiris AVR is present, well seated and functioning normally. Peak / me an gradients of 14 / 7 mmHg. Peak velocity is measured at 1.86 m/sec. Trivial insufficiency. Mild mitral annular calcification without stenosis. Trace regurgitation. The tricuspid valve is normal in structure with trace regurgitation. Normal pericardium. No effusion.
[2024-09-18] MEDS ORDERED: LISI10TA27 PO (10:26)
[2024-09-18] MEDS: ibuprofen tablet 400 MG TABLET PO ONE (12:26)
--- NOTE | 2024-09-18 15:57 | DISCHARGE SUMMARY-Residence ---
Discharge Summary Providers to CC Resident Creating Document: KATLYN BROOKS RES ~ Discharge Summary Admission Diagnosis: HTN emergency Hospital Course DATE OF ADMISSION: 09/16/2024 DATE OF DISCHARGE: 09/18/2024 Hospital course same as mentioned discharge summary. Discharge Diagnosis\Comment: Hypertensive urgency Hypertensive emergency ruled out History of Thrombocytopenia History of postop paroxysmal AFib, resolved and hence not on anticoagulation per CT surgeon's recommendation, on aspirin CHF ruled out, EF 70-75% RVSP 46, no signs of fluid overload noted History of hyperlipidemia History of aortic stenosis status post aortic valve replacement with root enlargement Operations\Procedures: None Consultants: None Complications: None Condition on DC: Stable New Medications: Lisinopril (Lisinopril) 10 Mg Tablet 30 MG PO DAILY, #90 TAB 1 Refill Continued Medications: Aspirin (Aspir 81) 81 Mg Tablet.dr 1 TAB PO PRN, TAB Ezetimibe (Ezetimibe) 10 Mg Tablet 1 TAB PO DAILY Pioglitazone Hcl* (Actos*) 15 Mg Tablet 30 MG PO DAILY Discontinued Medications: Benazepril HCl (Benazepril HCl) 10 Mg Tablet 1 TAB PO DAILY Carvedilol (Carvedilol) 12.5 Mg Tablet 1 TAB PO BID for HTN Meloxicam* (Meloxicam*) 7.5 Mg Tablet 1 TAB PO DAILY PRN for pain Discharge Summary: As per HPI: This is a 68-YEAR-OLD MALE , with history of aortic valve replacement, thrombocytopenia, diabetes mellitus type 2, CHF ejection fraction 70% August 2023, dyslipidemia, presented today to emergency department chief complaint elevated blood pressure associated with headaches, in addition patient PRESENTS TO THE ED WITH A COMPLAINT OF ELEVATED BLOOD PRESSURES OVER THE LAST 2- 3 DAYS. HE SAYS THAT HE WAS SEEN AT . [employer] YESTERDAY AND HIS COREG WAS INCREASED HOWEVER TODAY HE HAD BLOOD PRESSURES OVER 200 SYSTOLIC. Denies CHEST PAIN/SOB OR NAUSEA VOMITING ; patient says that has intermittently headaches bifrontal, pressure type in character without radiation, improving with controlling blood pressure, getting worse after nitroglycerin.HE ALSO HAS A COMPLEX CARDIAC HISTORY INCLUDING AORTIC VALVE REPLACEMENT AND ATRIAL FIBRILLATION. 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 Hospital course: On further evaluation his blood pressure on admission was 180/80. Was started on a nicardipine drip. Electrolytes were within normal limits. Lipid profile within normal range. Echo showed EF of 70-75%. Blood pressure stabilized in the drip was discontinued transitioned to p.o. medications lisinopril 30 p.o. daily. Blood pressure has been stable. He had a brief episode of bradycardia, lowest heart rate 53. Heart rate stabilized and has been in the range 65-80. Recommended that he stops taking home medication carvedilol. Blood pressure this morning 158/83. Was complaining of mild headache which resolved after Tylenol use. Denies significant chest pains, diaphoresis, fevers/chills, nasal congestion, expectoration, palpitations, or weight loss/weight gain. He has a history of postop paroxysmal AFib after his aortic valve replacement surgery and was taking Eliquis initially stopped two months after surgery per CT surgeon's recommendations and currently taking aspirin only. During the hospital course he has been in sinus rhythm. His hospital course is uncomplicated he is hemodynamically stable on the day of discharge and his physical exam is as follows: General: Awake and Alert, no acute distress. HEENT: Conjunctiva pink, Sclera clear, Mucus Membranes moist. Neck: Supple without masses and tenderness. Resp: Unlabored. Equal breath sounds bilaterally. Heart: Regular rhythm, normal S1 and S2, findings consistent with bioprosthetic aortic valve replacement (bovine valve). Abdomen: Soft and non tender no organomegaly. Normal bowel sounds x4 quadrant normoactive. No guarding or rigidity. Extremities: Normal ROM, no swelling, nontender. No cyanosis,clubbing or edema. [employer]: No gross motor or sensory abnormalities. Skin: Warm and Dry. Discharge medications can be found above. Patient is being discharged with the following advice: Follow up with PCP within a week. Continue to check BP at home and maintain a log, show it to your PCP. We have chnaged your BP meds, stop taking coreg and benzapril, take lisinopril 30 po daily. We have also stopped meloxicam as it could be contributing to your elevated bp. If condition worsens call 911 or go to the nearest er immediately. Laboratory Tests Test 09/16/24 17:36 09/16/24 17:46 09/16/24 21:30 09/16/24 23:15 Glucometer 149 mg/dl 165 mg/dl Troponin I High Sensitivity 11 ng/L 14 ng/L Troponin I High Sens Percent Delta 8 % 27 % Troponin I Hi Sens Absolute Change -1 ng/L 3 ng/L Test 09/17/24 05:07 09/18/24 06:07 White Blood Count 8.4 X10'3 9.7 X10'3 Red Blood Count 4.97 X10'6 5.64 X10'6 Hemoglobin 14.6 g/dl 16.7 g/dl Hematocrit 42.1 % 48.0 % Mean Corpuscular Volume 84.7 FL 85.1 FL Mean Corpuscular Hemoglobin 29.5 PG 29.7 PG Mean Corpuscular Hemoglobin Concent 34.8 g/dL 34.8 g/dL Red Cell Distribution Width 14.7 % 14.9 % Platelet Count 90 X10'3 103 X10'3 Mean Platelet Volume 8.8 FL 8.8 FL Neutrophils (%) (Auto) 83.5 % 75.7 % Lymphocytes (%) (Auto) 11.2 % 17.1 % Monocytes (%) (Auto) 4.8 % 6.1 % Eosinophils (%) (Auto) 0.1 % 0.3 % Basophils (%) (Auto) 0.4 % 0.8 % Neutrophils # (Auto) 7.0 X10'3 7.4 X10'3 Lymphocytes # (Auto) 0.9 X10'3 1.7 X10'3 Monocytes # (Auto) 0.4 X10'3 0.6 X10'3 Eosinophils # (Auto) 0.0 X10'3 0.0 X10'3 Basophils # (Auto) 0.0 X10'3 0.1 X10'3 CBC Comment Sodium Level 141 MMOL/L 143 MMOL/L Potassium Level 3.9 MMOL/L 4.1 MMOL/L Chloride Level 106 MMOL/L 106 MMOL/L Carbon Dioxide Level 26.2 MMOL/L 27.3 MMOL/L Anion Gap 9 10 Blood Urea Nitrogen 18 MG/DL 21 MG/DL Creatinine 1.02 MG/DL 1.10 MG/DL Estimated GFR/1.73 m2 73 ML/MIN 67 ML/MIN BUN/Creatinine Ratio 17.6 19.1 Glucose Level 137 MG/DL 123 MG/DL Calcium Level 8.4 MG/DL 9.2 MG/DL Total Bilirubin 0.6 MG/DL 0.8 MG/DL Aspartate Amino Transf (AST/SGOT) 25 U/L 21 U/L Alanine Aminotransferase (ALT/SGPT) 27 U/L 29 U/L Alkaline Phosphatase 117 IU/L 119 IU/L Total Protein 6.3 G/DL 7.1 G/DL Albumin 3.4 G/DL 3.9 G/DL Globulin 2.9 G/DL 3.2 G/DL Albumin/Globulin Ratio 1.2 1.2 Triglycerides Level 63 MG/DL Cholesterol Level 161 MG/DL LDL Cholesterol 84 MG/DL HDL Cholesterol 55 MG/DL Cholesterol/HDL Ratio 2.9 Chemistry Comments *Problems/Diagnosis: (1) Hypertensive urgency Status: Acute Total Time Spent on D/C: > 30 Minutes Date of Service: Sep 18, 2024 Billing Provider: ELIZABETH ENGLE MD Common Visit Codes: 33448-[id number] DISCH DAY >30min KATLYN BROOKS, RES Sep 18, 2024 15:50 ELIZABETH ENGLE MD Sep 18, 2024 21:25
== END 2024-09-18 13:01 | disposition home health service (06) | DRG 305 ==
LOC: ER 09:35 → ED HOLD 12:55 → PCU 3S 13:00
PROVIDERS: ADMIT Family Medicine; ATTEND Family Medicine
DX: I16.0 Hypertensive urgency (principal); I48.91 Unspecified atrial fibrillation; I35.0 Nonrheumatic aortic (valve) stenosis; E11.65 Type 2 diabetes mellitus with hyperglycemia; D69.6 Thrombocytopenia, unspecified; I10 Essential (primary) hypertension; Z79.82 Long term (current) use of aspirin; Z79.01 Long term (current) use of anticoagulants; Z79.899 Other long term (current) drug therapy; Z95.2 Presence of prosthetic heart valve; Z83.3 Family history of diabetes mellitus
CPT/HCPCS: 36415; 71045; 80048; 80053; 80061; 81001; 82948; 83036; 83735; 83880; 84100; 84484; 85025; 85610; 85730; 87081; 93005; 93306; 96361; 96374; 99285; G0378; J0360; J1815; J3490; J7030